=== PATIENT | male | born 1935 | race Caucasian/White ===

== ENCOUNTER 2017-12-18 14:57 | Inpatient (IN) | payer MEDICARE, OTHER ==
[~2017-12-18] VITALS: Ht 182.9 cm; Wt 121.2 kg
--- NOTE | ~2017-12-18 | EC ---
PATIENT:RAYMOND ANGUIANO DATE OF SERVICE: 12/18/17 SEX: M MEDICAL RECORD: [id number] DATE OF : 37 LOCATION:D.M2 D.210 AGE OF PATIENT: 82 ADMISSION DATE: 12/18/17 REFERRING PHYSICIAN: INTERPRETING PHYSICIAN: MARIANNE RENE MD ECHOCARDIOGRAM REPORT ECHO CHARGES 5 ECHO LIMITED Date: 12/20 CLINICAL DIAGNOSIS: CHF ECHOCARDIOGRAPHIC MEASUREMENTS (adult normal given) AC root (d.<3.7cm) 3.9 cm LV Septum d (<1.2 cm> 1.7 cm Valve Excursion 1.6 cm LV Septum (systole) 1.8 cm Left Atria (s.<4.0cm> 3.7 cm LVPW d(<1.2cm) 2.0 cm RV (d.<2.3cm) 5.2 cm LVPW (sytole) 1.8 cm LV diastole(<5.6CM) 4.9 cm MV E-F(>70mm/sec) cm LV systole 3.6 cm LVOT Diameter 1.9 cm MV exc.(>10mm) 1.8 cm Est.ejection fraction (50-75%) % DOPPLER: LVIT cm/sec A cm/sec E cm/sec LA cm/sec RVSP 46 mmHg LVOT cm/sec AOP1/2T m/s Asc. Ao cm/sec RVOT 84 cm/sec RA cm/sec PA 125 cm/sec AV Gradient Peak mmHg AV Mean mmHg AV Area cm MV Gradient Peak mmHg MV Mean mmHg MV Area cm COMMENTS: Leasing Machine Tender: Delmar HERNANDEZ Wax Pumper: 1 Dr. Rene TAPE# PACS Pericardial Effusion Y DATE OF SERVICE: 12/20/2017 FINDINGS: 1. Left ventricular chamber size is within normal limits. Left ventricular systolic function is normal. Overall ejection fraction estimated at 55%. 2. Left atrium is within normal limits at 3.7 cm. Right atrium and right ventricular chamber sizes are moderate to severely dilated. 3. Valvular structures have normal structure and motion. 4. Doppler interrogation reveals mild mitral regurgitation and aikazurp-co-sasqjl tricuspid regurgitation. Pulmonary systolic pressure is ECHOCARDIOGRAM REPORT [id number] RAYMOND ANGUIANO elevated estimated at 46 mmHg. 5. No evidence of pericardial effusion or left ventricular thrombus. TRANSINT:[id number] Voice Confirmation ID: [id number] DOCUMENT ID: [id number] MARIANNE RENE MD at 1006 CC: [id number] DICTATION DATE: 12/21/17 1002 HEALTH THERAPIST: 12/21/17 1247 DIS IN 12/21/17 [place] [id number] [place] [id number]
--- NOTE | ~2017-12-18 | CN ---
PATIENT NAME:RAYMOND ANGUIANO MEDICAL RECORD: [id number] : 37 LOCATION:D. D.2103 ADMIT DATE: 12/18/17 ACCOUNT: [id number] CONSULTING PHYSICIAN: JV GARIBAY MD REFERRING PHYSICIAN: CINDY MCNEILL MD DATE OF CONSULTATION: 12/19/2017 CONSULT REQUESTING PHYSICIAN: Harvey Deng MD REASON FOR CONSULTATION: Acute exacerbation of chronic obstructive pulmonary disease and shortness of breath. HISTORY OF PRESENT ILLNESS: Mr. Anguiano is an 82-year-old gentleman who has for the last one week worsening shortness of breath, he is wheezing. His cough is productive with white color sputum production. Also, he has swelling of the lower extremities. Denies any fever and chills. No night sweats. REVIEW OF SYSTEMS: As in history of present illness. PAST MEDICAL HISTORY: 1. COPD. 2. Restless leg syndrome. 3. Hypertension. 4. Atrial fibrillation. 5. History of basal cell carcinoma of the skin. PAST SURGICAL HISTORY: 1. Cholecystectomy. 2. T&A as a child. 3. Right knee scope surgery. ALLERGIES: ALLERGIC TO INDOMETHACIN, NIACIN, AND ULORIC. PRESENT MEDICATIONS: On [place] is reviewed. PERSONAL AND SOCIAL HISTORY: The patient is an ex-smoker. He is a nondrinker. FAMILY HISTORY: Significant for lung disease and cancer. PHYSICAL EXAMINATION: GENERAL: Now, the patient is lying comfortably in bed. He is not in acute distress. VITAL SIGNS: The blood pressure is 103/64, pulse is 68, respiration is 20, temperature 97.7, SpO2 is 96% on 2 liters nasal cannula. HEENT: Conjunctivae is pink. Sclerae are not icteric. NECK: Supple, no JVD. CHEST: There are bibasilar crackles. Wheeze on forceful expiration. HEART: Rhythm regular, normal sound, no murmur. ABDOMEN: Soft, bowel sounds present. No hepatosplenomegaly. RECTAL: Deferred. EXTREMITIES: No cyanosis, no clubbing. There are 2+ pedal edema. CENTRAL NERVOUS SYSTEM: The patient awake and alert. There are no obvious cranial nerve abnormality. The gait was not tested. CHEST RADIOGRAPH: There is no acute infiltrate. There is cardiomegaly. CONSULT REPORT [id number] RAYMOND ANGUIANO OTHER LABORATORY DATA: CBC: The WBC is 8.3, hemoglobin 12.9, hematocrit 39, the platelet count is 177. Chemistry: Sodium 136, potassium is 4, BUN is 36, creatinine 1.8. IMPRESSION: 1. Acute exacerbation of chronic obstructive pulmonary disease. 2. Acute hypoxic respiratory failure. 3. Tracheobronchitis. 4. Congestive heart failure, possible diastolic dysfunction. 5. Hypertension. 6. Atrial fibrillation. RECOMMENDATION: 1. Methylprednisolone IV. Start on doxycycline. 2. Albuterol and ipratropium nebulizer, Brovana and budesonide nebulizer. 3. Bumex IV. 4. Supplemental oxygen. 5. Check the cardiac echo. Follow labs and chest radiograph. Dr. Deng, thank you for involving me in the care of Mr. Anguiano. TRANSINT:[id number] Voice Confirmation ID: [id number] DOCUMENT ID: [id number] VJ GARIBAY MD at 1208 CC: HARVEY DENG MD [id number] DICTATION DATE: 12/19/17 1514 ALMOND BLANCHER HAND: 12/19/17 1539 DIS IN 12/21/17 [place] [id number] [place] [address]
[~2017-12-18 14:57] MED LIST: ALLEGRA180 MG PO; ASPIRIN EC81 MG PO; AVAPRO150 MG PO; CARDIZEM CD180 MG PO; COLCRYS0.6 MG PO; CRESTOR5 MG PO; K-TAB10 MEQ PO; LANTUS SOL100 UNIT/1; LASIX20 MG PO; NORCO 5/325 TAB1 TA1 PO; PRADAXA150 MG PO; REQUIP1 MG PO; VITAMIN B-121000 MCG PO; ZANTAC150 MG PO
[2017-12-18 15:52] LABS: BASOPHILS 0.2 % (0-2); EOSINOPHILS 0.2 % (0-7); HEMATOCRIT 41.2 % (42.0-54.0); HEMOGLOBIN 13.6 g/dL (13.5-17.5); IMMATURE GRANULOCYTES 0.5 % (0-5); LYMPHOCYTES 11.3 % (15-50); MCH 31.5 pg (26.0-34.0); MCV 95.4 fL (80.0-100.0); MONOCYTES 13.4 % (2-11); NEUTROPHILS 74.4 % (40-80); PLATELET COUNT 164 10x3/uL (130-400); RBC 4.32 10x6/uL (4.20-6.10); RDW 13.8 % (11.5-14.5); WBC 10.3 10x3/uL (4.8-10.8)
[2017-12-18 16:05] LABS: ALBUMIN 3.1 g/dL (3.4-5.0); ALKALINE PHOSPHATASE 65 U/L (46-116); ALT (SGPT) 27 U/L (10-68); BILIRUBIN - TOTAL 0.63 mg/dL (0.2-1.3); CALC OSMOLALITY 282 mosm/kg (275-300); CALCIUM 9.2 mg/dL (8.5-10.1); CARBON DIOXIDE 25.1 mmol/L (21.0-32.0); CHLORIDE - SERUM 100 mmol/L (98-107); CREATININE - SERUM 1.8 mg/dL (0.6-1.3); POTASSIUM - SERUM 4.2 mmol/L (3.5-5.1); PROTEIN - SERUM 6.8 g/dL (6.4-8.2); SODIUM 135 mmol/L (136-145); UREA NITROGEN 36 mg/dL (7-18); eGFR NON AFRICAN AMERICAN 39 mL/min (90-120)
[2017-12-18 16:12] LABS: GLUCOSE 197 mg/dL (74-106)
[2017-12-18 16:13] LABS: CREATINE KINASE 73 UL (21-232); LDH 196 U/L (85-227); PRO BNP 3630 pg/mL (0-450)
[2017-12-18 16:14] LABS: TROPONIN-I < 0.017 ng/mL (0.000-0.060)
[2017-12-18] MEDS ORDERED: TRADJENTA5 MG PO (19:51)
[2017-12-18] MEDS ORDERED: VITAMIN D250000 UNIT PO (19:53)
[2017-12-18] MEDS ORDERED: COREG25 MG PO (19:53)
[2017-12-18 20:00] VITALS: BP 172/60
[2017-12-18] MEDS ORDERED: PROAIR HFA8.5 GM INH (20:01)
[2017-12-19 01:00] VITALS: BP 156/60
[2017-12-19 04:00] VITALS: BP 154/68
[2017-12-19 05:18] LABS: BASOPHILS 0.1 % (0-2); EOSINOPHILS 0 % (0-7); HEMOGLOBIN 12.9 g/dL (13.5-17.5); IMMATURE GRANULOCYTES 0.4 % (0-5); LYMPHOCYTES 8.7 % (15-50); MCH 30.9 pg (26.0-34.0); MCHC 33.1 g/dL (31.0-37.0); MCV 93.5 fL (80.0-100.0); MEAN PLATELET VOLUME 9.9 fL (7.4-10.4); MONOCYTES 2.2 % (2-11); NEUTROPHILS 88.6 % (40-80); PLATELET COUNT 177 10x3/uL (130-400); RBC 4.17 10x6/uL (4.20-6.10); RDW 13.7 % (11.5-14.5); WBC 8.3 10x3/uL (4.8-10.8)
[2017-12-19 05:37] LABS: CALCIUM 8.9 mg/dL (8.5-10.1); CREATININE - SERUM 1.8 mg/dL (0.6-1.3)
[2017-12-19 08:52] VITALS: BP 142/67
[2017-12-19 11:29] VITALS: BP 103/64
[2017-12-19 12:22] VITALS: Ht 182.9 cm; Wt 121.2 kg
[2017-12-19 16:15] VITALS: BP 154/81
[2017-12-19 20:03] VITALS: BP 151/66
[2017-12-20 01:03] VITALS: BP 127/63
[2017-12-20 05:01] VITALS: BP 184/91
[2017-12-20 05:46] LABS: BASOPHILS 0 % (0-2); EOSINOPHILS 0 % (0-7); HEMATOCRIT 39.9 % (42.0-54.0); HEMOGLOBIN 13.1 g/dL (13.5-17.5); IMMATURE GRANULOCYTES 0.4 % (0-5); LYMPHOCYTES 5.9 % (15-50); MCH 30.8 pg (26.0-34.0); MCHC 32.8 g/dL (31.0-37.0); MCV 93.9 fL (80.0-100.0); MEAN PLATELET VOLUME 10.1 fL (7.4-10.4); MONOCYTES 5.3 % (2-11); NEUTROPHILS 88.4 % (40-80); PLATELET COUNT 199 10x3/uL (130-400); RBC 4.25 10x6/uL (4.20-6.10); RDW 13.7 % (11.5-14.5)
[2017-12-20 06:16] LABS: ALBUMIN 2.9 g/dL (3.4-5.0); BILIRUBIN - TOTAL 0.5 mg/dL (0.2-1.3); CARBON DIOXIDE 28.6 mmol/L (21.0-32.0); CREATININE - SERUM 1.9 mg/dL (0.6-1.3); POTASSIUM - SERUM 3.6 mmol/L (3.5-5.1); PROTEIN - SERUM 6.5 g/dL (6.4-8.2)
[2017-12-20 07:43] VITALS: BP 148/61
[2017-12-20 11:21] VITALS: BP 176/75
[2017-12-20 15:19] VITALS: BP 177/71
[2017-12-20 20:00] VITALS: BP 138/74
[2017-12-21] VITALS: BP 141/51
[2017-12-21 05:12] LABS: BASOPHILS 0 % (0-2); EOSINOPHILS 0 % (0-7); HEMATOCRIT 39.7 % (42.0-54.0); IMMATURE GRANULOCYTES 0.6 % (0-5); LYMPHOCYTES 7.6 % (15-50); MCH 30.8 pg (26.0-34.0); MCHC 32.7 g/dL (31.0-37.0); MCV 94.1 fL (80.0-100.0); MEAN PLATELET VOLUME 9.9 fL (7.4-10.4); MONOCYTES 5.2 % (2-11); NEUTROPHILS 86.6 % (40-80); PLATELET COUNT 207 10x3/uL (130-400); RBC 4.22 10x6/uL (4.20-6.10); RDW 13.7 % (11.5-14.5); WBC 14.1 10x3/uL (4.8-10.8)
[2017-12-21 05:27] LABS: ALBUMIN 2.7 g/dL (3.4-5.0); BILIRUBIN - TOTAL 0.39 mg/dL (0.2-1.3); CALCIUM 8.8 mg/dL (8.5-10.1); CARBON DIOXIDE 30.6 mmol/L (21.0-32.0); CREATININE - SERUM 1.6 mg/dL (0.6-1.3); POTASSIUM - SERUM 3.6 mmol/L (3.5-5.1)
[2017-12-21 09:10] VITALS: BP 142/52
[2017-12-21] MEDS ORDERED: LISINOPRIL5 MG PO (14:58)
[2017-12-21] MEDS ORDERED: PREDNISONE10 MG PO (15:01)
== END 2017-12-21 18:34 | disposition home or self-care (01) | DRG 291 ==
LOC: D.ER 14:57 → D.M2 18:20 → D.EDHOLD 18:20 → D.M2 19:03
PROVIDERS: Emergency Medicine; Family Medicine
DX: I13.0 Hypertensive heart and chronic kidney disease with heart failure and stage 1 through stage 4 chronic kidney disease, or unspecified chronic kidney disease (principal); J96.01 Acute respiratory failure with hypoxia; I50.21 Acute systolic (congestive) heart failure; J44.1 Chronic obstructive pulmonary disease with (acute) exacerbation; N18.9 Chronic kidney disease, unspecified; E11.22 Type 2 diabetes mellitus with diabetic chronic kidney disease; E11.65 Type 2 diabetes mellitus with hyperglycemia; G25.81 Restless legs syndrome; I48.2 Chronic atrial fibrillation; Z87.891 Personal history of nicotine dependence

== ENCOUNTER → 2018-06-08 12:55 | Outpatient (CLI) | payer MEDICARE, OTHER ==
[2017-12-19 12:22] VITALS: BMI 35.9
[~2018-06-08 12:55] MED LIST changes: +COREG25 MG PO; +LISINOPRIL5 MG PO; +PREDNISONE10 MG PO; +PROAIR HFA8.5 GM INH; +TRADJENTA5 MG PO; +VITAMIN D250000 UNIT PO
== END | disposition home or self-care (01) ==
LOC: D.RT 12:55
DX: J90 Pleural effusion, not elsewhere classified (principal); J44.9 Chronic obstructive pulmonary disease, unspecified

== ENCOUNTER → 2018-12-18 14:02 | Outpatient (CLI) | payer MEDICARE, OTHER ==
[2017-12-19 12:22] VITALS: BMI 35.9
== END | disposition home or self-care (01) ==
LOC: D.HCCARDIO 12-12 11:00
PROVIDERS: ATTEND Internal Medicine Cardiovascular Disease
DX: I48.91 Unspecified atrial fibrillation (principal)

== ENCOUNTER 2019-03-09 08:10 | Day surgery (SDC) | payer MEDICARE, OTHER ==
[2019-03-08 14:36] LABS: BASOPHILS 0.3 % (0-2); EOSINOPHILS 2.9 % (0-7); HEMATOCRIT 41.2 % (42.0-54.0); HEMOGLOBIN 13.7 g/dL (13.5-17.5); IMMATURE GRANULOCYTES 0.6 % (0-5); MCHC 33.3 g/dL (31.0-37.0); MCV 93.2 fL (80.0-100.0); MEAN PLATELET VOLUME 9.1 fL (7.4-10.4); MONOCYTES 11.3 % (2-11); NEUTROPHILS 71.9 % (40-80); RBC 4.42 10x6/uL (4.20-6.10); RDW 14.2 % (11.5-14.5); WBC 11.7 10x3/uL (4.8-10.8)
[2019-03-08 14:37] LABS: PLATELET COUNT 255 10x3/uL (130-400)
[2019-03-08 14:49] LABS: ANION GAP 13.8 mmol/L (8-16); CARBON DIOXIDE 26.7 mmol/L (21.0-32.0); CREATININE - SERUM 1.9 mg/dL (0.6-1.3); POTASSIUM - SERUM 4.5 mmol/L (3.5-5.1)
[2019-03-08 14:53] LABS: INR 1.13 (0.85-1.17)
[2019-03-08 14:54] LABS: APTT 38.2 SECONDS (22.8-39.4)
[~2019-03-09] VITALS: Ht 182.9 cm; Wt 113.4 kg
[~2019-03-09 08:10] MED LIST changes: +ADVAIR HFA [SP]12 GM; +ALBUTEROL SULF8.5 GM; +FLUTICASONE PRO16 GM; +HYDRALAZINE HCL25 MG; +SPIRIVA18 MCG INH; +TIAZAC/CARDIZE180 MG; +ZANTAC300 MG
[2019-03-09 08:25] VITALS: BP 125/54; Ht 182.9 cm; Wt 113.4 kg
[2019-03-09] MEDS ORDERED: HYDROCODON-ACE1 EAC7 PO (11:49)
[2019-03-09] MEDS ORDERED: DURICEF500 MG PO (11:49)
--- NOTE | 2019-03-09 13:19 | OP ---
PATIENT NAME: RAYMOND ANGUIANO MEDICAL RECORD: [id number] :37 LOCATION:[facility] ADMISSION DATE: SURGEON: LUCIAN KONG DO DATE OF OPERATION: 03/09/2019 PROCEDURE PERFORMED: Left olecranon bursectomy. PREOPERATIVE DIAGNOSIS: Left olecranon bursitis. POSTOPERATIVE DIAGNOSIS: Left olecranon bursitis. INDICATIONS: Mr. Anguiano is an 83-year-old male, who presented to my office, seen by the nurse practitioner with left olecranon bursitis that had been aspirated previously and came right back. It is possible tophaceous in nature. He was tired of dealing with it. It was affecting his activities of daily living and given the pain, he could not rest his elbow on anything and wanted that removed. I informed him we could do that, but there is a high likelihood of it returning, but he was okay with that risk as well as the risks of damage to nerves and vessels, need for further surgery, bleeding and he signed the consent. SURGEON: Lucian Kong DO DESCRIPTION OF PROCEDURE: The patient was taken to the operative suite, laid in supine position, given general anesthetic. An LMA was placed. Given 2 grams of Ancef preoperatively. The left upper extremity was prepped and draped in sterile fashion. Incision was marked out over the elbow, the bursa, a slight radial curvature. The left upper extremity was then exsanguinated with an Esmarch and tourniquet was inflated to 250 mmHg, it was up for 19 minutes. Incision was then made. Careful dissection was made around the bursa and dissecting it out. In the more inferior portion of it, a small rent was made and drained tophaceous looking fluid. The rest of the sac was then removed, and the olecranon was debrided, it seemed to have some tophaceous material in it. The tourniquet was then let down. Any bleeding was coagulated at that time and then the incision was closed with 2-0 Vicryl in inverted interrupted fashion, 4-0 Monocryl on one other spot in inverted interrupted fashion and then injected with 17 mL of 0.25% Marcaine with epinephrine around the site. Then, a ZipLine was placed over that incision. Then Adaptic, 4 x 4, Webril, and Dave wrap was wrapped from the hand up to above the elbow. He was awakened and taken to recovery in stable condition. BLOOD LOSS: Minimal. COMPLICATIONS: None. TRANSINT:[id number] Voice Confirmation ID: [id number] DOCUMENT ID: [id number] OPERATIVE REPORT [id number] RAYMOND ANGUIANO,LUCIAN Garcia DO at 1319 CC: [id number] DICTATION DATE: 03/09/19 1147 BUSINESS CONSULT: 03/09/19 1[address] [place] [address] [place] [address]
--- NOTE | 2019-03-09 13:30 | NUR ---
PIV DC'D WITH TIP INTACT. PATIENT WALKING AROUND ROOM WITHOUT DIZZINESS OR UNSTEADINESS. PATIENT DRESSING IN PERSONAL CLOTHING. DISCHARGE INSTRUCTIONS REVIEWED WITH PATIENT AND SPOUSE
== END 2019-03-09 13:45 | disposition home or self-care (01) ==
LOC: D.OPS 08:10 → D.PAN 09:15 → D.OPS 09:15
PROVIDERS: Anesthesiology; ATTEND Orthopaedic Surgery
DX: M70.22 Olecranon bursitis, left elbow (principal); Z01.812 Encounter for preprocedural laboratory examination

== ENCOUNTER → 2019-03-19 12:20 | Outpatient (CLI) | payer MEDICARE, OTHER ==
[2019-03-09 08:25] VITALS: BMI 34.0
[~2019-03-19 12:20] MED LIST changes: +DURICEF500 MG PO; +HYDROCODON-ACE1 EAC7 PO
== END | disposition home or self-care (01) ==
LOC: D.MRI 11:00
PROVIDERS: ATTEND Internal Medicine Cardiovascular Disease
DX: I70.203 Unspecified atherosclerosis of native arteries of extremities, bilateral legs (principal)

== ENCOUNTER 2019-07-18 11:51 | Inpatient (IN) | payer MEDICARE, OTHER ==
[~2019-07-18] VITALS: Ht 182.9 cm; Wt 44.1 kg
[~2019-07-18 11:51] MED LIST changes: -ADVAIR HFA [SP]12 GM; +ADVAIR HFA [SP]12 GM INH; -ALBUTEROL SULF8.5 GM; +ALBUTEROL SULF8.5 GM INH; -FLUTICASONE PRO16 GM; +FLUTICASONE PRO16 GM NASAL; -TIAZAC/CARDIZE180 MG; +TIAZAC/CARDIZE180 MG PO
--- NOTE | 2019-07-18 12:57 | NUR ---
RECEIVED PT TO ROOM 2120 VIA STRETCHER, PT TRANSFERED FROM STRETCHER TO BED X2 ASSIST. PT A/O X4, A LITTLE SOB, PLACED ON 4L NC. ORIENTED PT TO ROOM AND CALL LIGHT, WILL ASSESS PT AND START PLAN OF CARE.
[2019-07-18] MEDS ORDERED: LASIX20 MG PO (13:16)
[2019-07-18] MEDS ORDERED: VOLTAREN100 GM TOPICAL (13:18)
[2019-07-18 13:55] LABS: BASOPHILS 0.6 % (0-2); HEMATOCRIT 41.9 % (42.0-54.0); HEMOGLOBIN 13.4 g/dL (13.5-17.5); IMMATURE GRANULOCYTES 0.6 % (0-5); LYMPHOCYTES 22.1 % (15-50); MCH 30.4 pg (26.0-34.0); MEAN PLATELET VOLUME 9.4 fL (7.4-10.4); NEUTROPHILS 61.7 % (40-80); PLATELET COUNT 213 10x3/uL (130-400); RBC 4.41 10x6/uL (4.20-6.10); RDW 14.9 % (11.5-14.5)
[2019-07-18 14:03] LABS: APTT 44.2 SECONDS (22.8-39.4); INR 1.41 (0.85-1.17); PROTIME 16.7 SECONDS (11.6-15.0)
[2019-07-18 14:18] LABS: ALBUMIN 2.9 g/dL (3.4-5.0); ANION GAP 11.1 mmol/L (8-16); BILIRUBIN - TOTAL 0.44 mg/dL (0.2-1.3); CALCIUM 9.1 mg/dL (8.5-10.1); CARBON DIOXIDE 31.4 mmol/L (21.0-32.0); CREATININE - SERUM 2.5 mg/dL (0.6-1.3); POTASSIUM - SERUM 3.5 mmol/L (3.5-5.1); PROTEIN - SERUM 6.4 g/dL (6.4-8.2)
[2019-07-18 14:19] VITALS: BP 158/65; BMI 33.3
[2019-07-18 14:50] VITALS: Ht 182.9 cm; Wt 44.1 kg
[2019-07-18 18:13] LABS: CHOL - HDL RATIO 4.8 ratio (2.3-4.9); LDL-HDL RATIO 2.6 ratio (1.5-3.5)
--- NOTE | 2019-07-18 19:22 | NUR ---
RECEIVED BEDSIDE REPORT. PATIENT RESTING COMFORTABLY IN BED. RESPIRATIONS ARE EVEN AND UNLABORED. NO S/S OF DISTRESS. NO C/O PAIN. CALL LIGHT WITHIN REACH.
[2019-07-18 20:00] VITALS: BP 158/59
[2019-07-18 20:50] LABS: APPEARANCE CLEAR (CLEAR); BILIRUBIN NEGATIVE (NEGATIVE); COLOR YELLOW (YELLOW); EPITHELIAL CELLS 0-5 /hpf (0-5); GLUCOSE NEGATIVE (NEGATIVE); KETONE NEGATIVE (NEGATIVE); NITRITE NEGATIVE (NEGATIVE); PROTEIN 2+ mg/dL (NEGATIVE); RED CELLS - URINE 0-5 /hpf (0-5); UROBILINOGEN NORMAL (NORMAL); WHITE CELLS - URINE 0-5 /hpf (NEGATIVE)
--- NOTE | 2019-07-18 20:57 | NUR ---
UA OBTAINED AND SENT TO LAB.
[2019-07-19] VITALS: BP 148/50
[2019-07-19 04:00] VITALS: BP 173/65
[2019-07-19 05:17] LABS: BASOPHILS 0.3 % (0-2); EOSINOPHILS 4.6 % (0-7); HEMATOCRIT 40.9 % (42.0-54.0); IMMATURE GRANULOCYTES 0.7 % (0-5); LYMPHOCYTES 19.4 % (15-50); MCH 30.4 pg (26.0-34.0); MCHC 31.8 g/dL (31.0-37.0); MCV 95.6 fL (80.0-100.0); MEAN PLATELET VOLUME 9.7 fL (7.4-10.4); MONOCYTES 14.2 % (2-11); NEUTROPHILS 60.8 % (40-80); PLATELET COUNT 212 10x3/uL (130-400); RBC 4.28 10x6/uL (4.20-6.10); RDW 14.9 % (11.5-14.5); WBC 7.4 10x3/uL (4.8-10.8)
[2019-07-19 05:44] LABS: ANION GAP 12.6 mmol/L (8-16); CALCIUM 8.9 mg/dL (8.5-10.1); CARBON DIOXIDE 30.7 mmol/L (21.0-32.0); CREATININE - SERUM 2.4 mg/dL (0.6-1.3); PHOSPHOROUS 4.3 mg/dL (2.5-4.9); POTASSIUM - SERUM 3.3 mmol/L (3.5-5.1)
--- NOTE | 2019-07-19 07:30 | NUR ---
REPORT RECEIVED FROM ASSOCIATE TRAINER AND PATIENT CARE ASSUMED. PATINT OAYING IN BED WITH EYES CLOSED AND BREATHING EVENLY. WILL CONTINUE WITH PLAN OF CARE. SR UP X 2 BED IN LOW POSITION AND CALL LIGHT IN REACH.
[2019-07-19 08:00] VITALS: BP 165/64
[2019-07-19 09:25] VITALS: BP 165/64
[2019-07-19 13:08] VITALS: BP 184/87
--- NOTE | 2019-07-19 13:15 | NUR ---
PATIENT SITTING UP IN BED VISITING WITH . PATIENT IS STABLE AND VSS. PATIENT DENIES ANY NEEDS OR PAIN. [facility]. SR UP X 2 BED IN LOW POSITION AND CALL LIGHT IN REACH.
--- NOTE | 2019-07-19 15:00 | NUR ---
CALLED TO PATIENTS ROOM. PATIENT QUESTIONED IF DR WAS COMING TO SEE HIM. CHECKED CHART AND NOTE FROM 1128 BUT PATIENT AND DENIE THAT PATIENT SAW PHYSICIAN.
[2019-07-19 16:00] VITALS: BP 180/82
--- NOTE | 2019-07-19 19:31 | NUR ---
RECIEVED LAYING IN BED WITH EYES CLOSED. EASILY AROUSED WITH VERBAL STIMULI. ORIENTED X4. O2@ 2 LITERS PER N/C. IV TO RIGHT WRIST SL. TELEMETRY IN [PLACE. USES URINAL IN BED. DENIES ANY NEEDS AT THIS TIME.
[2019-07-20] VITALS: BP 194/89
[2019-07-20 04:00] VITALS: BP 169/98
--- NOTE | 2019-07-20 07:10 | NUR ---
REPORT RECEVIED FROM VALVE MACHINE OPERATOR AND PATIENT CARE ASSUMED. PATIENT LAYING IN BED ON BACK AWAKE, ALERT AND ORIENTED X 4. PATIENT IS STABLE AND VSS. PATIENT DENIES ANY NEEDS OR PAIN. WILL CONTINUE WITH PLAN OF CARE. SR UP X 2 BED IN LOW POSITION AND CALL LIGHT IN REACH.
[2019-07-20 08:50] VITALS: BP 177/104
[2019-07-20 11:51] LABS: BASOPHILS 0.2 % (0-2); EOSINOPHILS 0.7 % (0-7); HEMATOCRIT 44.7 % (42.0-54.0); HEMOGLOBIN 14.3 g/dL (13.5-17.5); LYMPHOCYTES 11.4 % (15-50); MCH 30.8 pg (26.0-34.0); MCV 96.1 fL (80.0-100.0); MEAN PLATELET VOLUME 9.8 fL (7.4-10.4); MONOCYTES 14.6 % (2-11); NEUTROPHILS 72.1 % (40-80); PLATELET COUNT 220 10x3/uL (130-400); RBC 4.65 10x6/uL (4.20-6.10)
[2019-07-20 11:56] LABS: WBC 10.2 10x3/uL (4.8-10.8)
[2019-07-20 12:03] LABS: ANION GAP 11.5 mmol/L (8-16); CALCIUM 9.8 mg/dL (8.5-10.1); CARBON DIOXIDE 32.5 mmol/L (21.0-32.0); CREATININE - SERUM 2.3 mg/dL (0.6-1.3)
--- NOTE | 2019-07-20 12:14 | NUR ---
PATIENT IS STABLE AND UNCHANGED. STILL WITH DYSPNEA WITH EXERTION. PATIENT SITTING UP EATING LUNCH. AT BS. WILL CONTINUE TO MONITOR. SR UP X 2 BED IN LOW POSITION AND CALL LIGHT IN REACH.
[2019-07-20 13:42] VITALS: BP 168/73
--- NOTE | 2019-07-20 15:25 | NUR ---
PATIENT LAYING IN BED ON BACK WITH HOB ELEVATED [address] JAMES AND CHASTITY ELDER IN ROOM. WILL CONTINUE TO MONITOR. SR UP X 2 BED IN LOW POSITION AND CALL LIGHT IN REACH.
--- NOTE | 2019-07-20 15:28 | EC ---
PATIENT:RAYMOND ANGUIANO DATE OF SERVICE: 07/18/19 SEX: M MEDICAL RECORD: [id number] DATE OF : 36 LOCATION:D.M2 D.212 AGE OF PATIENT: 84 ADMISSION DATE: 07/18/19 REFERRING PHYSICIAN: INTERPRETING PHYSICIAN: MARIANNE RENE MD ECHOCARDIOGRAM REPORT ECHO CHARGES 4 ECHO COMPLETE Date: 07/20/19 CLINICAL DIAGNOSIS: A-FIB/CHF ECHOCARDIOGRAPHIC MEASUREMENTS (adult normal given) AC root (d.<3.7cm) 3.7 cm LV Septum d (<1.2 cm> 1.4 cm Valve Excursion 1.7 cm LV Septum (systole) 2.0 cm Left Atria (s.<4.0cm> 4.0 cm LVPW d(<1.2cm) 1.6 cm RV (d.<2.3cm) 2.8 cm LVPW (sytole) 2.0 cm LV diastole(<5.6CM) 4.9 cm MV E-F(>70mm/sec) cm LV systole 3.2 cm LVOT Diameter 2.1 cm MV exc.(>10mm) cm Est.ejection fraction (50-75%) % DOPPLER: LVIT cm/sec A 74.0 cm/sec E 121 cm/sec LA cm/sec RVSP 39.0 mmHg LVOT 76.0 cm/sec AOP1/2T m/s Asc. Ao 15 cm/sec RVOT 68.0 cm/sec RA cm/sec PA 81.0 cm/sec AV Gradient Peak 9.7 mmHg AV Mean 5.1 mmHg AV Area 1.7 cm MV Gradient Peak 8.0 mmHg MV Mean 1.9 mmHg MV Area cm COMMENTS: Center Customer Service Associate: Manuela KEITHOE Medical Assistant Supervisor: 1 Dr. Rene TAPE# PACS Pericardial Effusion Y DATE OF SERVICE: ECHOCARDIOGRAM FINDINGS: 1. Left ventricular chamber size is within normal limits. Left ventricular systolic function is mildly reduced at 40%. 2. Left atrium is upper limits of normal at 4.0 cm. Right atrium and right ventricular chamber sizes are mildly dilated. 3. Valvular structures have normal structure and motion. ECHOCARDIOGRAM REPORT [id number] RAYMOND ANGUIANO 4. Doppler interrogation reveals moderate mitral regurgitation, moderate tricuspid regurgitation, no other valvular insufficiency or stenosis. Pulmonary systolic pressure is estimated at 39 mmHg. 5. Trace pericardial effusion is present. This is not hemodynamically significant. No evidence of left ventricular thrombus. TRANSINT:[id number] Voice Confirmation ID: [id number] DOCUMENT ID: [id number] MARIANNE RENE MD at 1528 CC: [id number] DICTATION DATE: 07/20/19 1237 TRANSFUSION NURSE: 07/20/19 1247 ADM IN [place] [address] [place] [address]
[2019-07-20 18:26] VITALS: BP 206/108
--- NOTE | 2019-07-20 19:31 | NUR ---
RECIEVED SITTING UP ON SIDE OF BED. ALERT AND ORIENTED X4. UP WITH ASSIST. O2@ 5 LITERS PER N/C IN PLACE. IV TO RIGHT WRIST SL.. TELEMETRY IN PLACE. DENIES ANY PAIN OR NEEDS AT THIS TIME.
[2019-07-20 20:00] VITALS: BP 186/92
--- NOTE | 2019-07-20 21:41 | NUR ---
HAS HAD HIGH B/P READINGS. 186/92 ON RIGHT ARM AND 219/96 ON LEFT. NOTIFIED CHASTITY PRINGLE WITH NEW ORDERS TO INCREASE COREG TO 12.5 MG BID AND TO GIVE FIRST DOSE NOW. PT AWARE OF NEW ORDER.
[2019-07-21] VITALS: BP 177/92
[2019-07-21 04:30] VITALS: BP 181/94
[2019-07-21 05:12] LABS: BASOPHILS 0.3 % (0-2); EOSINOPHILS 2.7 % (0-7); HEMATOCRIT 41.7 % (42.0-54.0); HEMOGLOBIN 13.5 g/dL (13.5-17.5); IMMATURE GRANULOCYTES 0.6 % (0-5); LYMPHOCYTES 12.7 % (15-50); MCH 30.6 pg (26.0-34.0); MCHC 32.4 g/dL (31.0-37.0); MCV 94.6 fL (80.0-100.0); MEAN PLATELET VOLUME 10.1 fL (7.4-10.4); MONOCYTES 17.5 % (2-11); NEUTROPHILS 66.2 % (40-80); PLATELET COUNT 213 10x3/uL (130-400); RBC 4.41 10x6/uL (4.20-6.10); RDW 14.8 % (11.5-14.5); WBC 7.9 10x3/uL (4.8-10.8)
[2019-07-21 05:18] LABS: ANION GAP 11.5 mmol/L (8-16); CALCIUM 9.1 mg/dL (8.5-10.1); CARBON DIOXIDE 29.6 mmol/L (21.0-32.0); MAGNESIUM - SERUM 1.9 mg/dL (1.8-2.4); POTASSIUM - SERUM 4.1 mmol/L (3.5-5.1)
--- NOTE | 2019-07-21 07:40 | NUR ---
alert and oriented.TELEMERTY SHOWS CAF 85. O2 AT 5 L/M PER NC. hOB UP. SL TO RIGHT WRIST. PT IS HARD OF HEARING. DENIES ANY NEEDS. SR UP WITH CALL LIGHT IN REACH.
[2019-07-21 08:36] VITALS: BP 208/108
--- NOTE | 2019-07-21 09:53 | NUR ---
I have reviewed this patient and I concur with the Shift Assessment completed by the Licensed Practical Nurse today this shift.
[2019-07-21 12:30] VITALS: BP 179/95
--- NOTE | 2019-07-21 14:20 | MORECARE ---
CASE MANAGEMENT DISCHARGE SUMMARY PATIENT: RAYMOND ANGUIANO UNIT: [id number] ADM DATE: 07/18/19 AGE: 84 : 36 SEX: M ROOM/BED: D.2121 AUTHOR: RICO,DOC PHYSICIAN: REFERRING PHYSICIAN: GEORGIA BANGURA MD DATE OF SERVICE: 07/21/19 Discharge Plan Patient Name: RAYMOND ANGUIANO Facility: [facility]:[place] : 1935 Planned Disposition: Home or Self Care Anticipated Discharge Date: 07/21/19 Discharge Date: Expected LOS: 3 Initial Reviewer: [email or web address] Initial Review Date: 07/21/2019 Generated: 07/21/19 3:20 pm Comments DCP- Discharge Planning Updated by [email or web address]: Chasity Rajan on 07/21/19 1:[address] Patient Name: RAYMOND ANGUIANO Admission Status: Urgent Accout number: [id number] Admission Date: 07-18-2019 : 1935 Admission Diagnosis: Attending: GEORGIA BANGURA Current LOS: 3 Anticipated DC Date: 07-21-2019 Planned Disposition: Home or Self Care Primary Insurance: MEDICARE A & B Discharge Planning Comments: CM met with patient at bedside after explaining CM role and obtaining verbal consent. PATIENT STATES HOPE TO DC TO HOME TODAY. MAY NEED PORTABLE O2. HAS HOME O2 WITH [facility]. CM discussed availability / needs of home health, REHAB and medical equipment. DENIES ANY NEEDS FOR HH OR REHAB. CM TO FOLLOW. Health Unit Coordinator: Chasity Rajan DCPIA - Discharge Planning Initial Assessment Updated by [email or web address]: Chasity Rajan on 07/21/19 2:18 pm * Is the patient Alert and Oriented? Yes * PCP [facility] * [facility] * Preadmission Environment Home with Family * ADLs Independent * Other Equipment 02 WALKER * List name and contact numbers for known caregivers / representatives who currently or will assist patient after discharge: RINA, * Community resources currently utilized None * Please name any agencies selected above. [facility] * Additional services required to return to the preadmission environment? No * Can the patient safely return to the preadmission environment? Yes * Has this patient been hospitalized within the prior 30 days at any hospital? No Patient Name: RAYMOND ANGUIANO Page [id number] at 1420 All edits/amendments must be made on the electronic document DICTATION DATE: 07/21/191419 MANAGER MATERIALS MANAGEMENT: GE 07/21/191419 RPT#: [id number] DC DATE: STATUS: ADM IN [facility] [address] [place] [address] END OF REPORT
[2019-07-21 16:07] VITALS: BP 162/92
[2019-07-21] MEDS ORDERED: HYDRALAZINE HCL25 MG PO (17:24)
--- NOTE | 2019-07-21 18:52 | NUR ---
PT DISCHARGED. IV DCD WITH TIP INTACT. TO PRIVATE CAR PER WHEEL CHAIR.
--- NOTE | 2019-07-22 10:06 | MORECARE ---
CASE MANAGEMENT DISCHARGE SUMMARY PATIENT: RAYMOND ANGUIANO UNIT: [id number] ADM DATE: 07/18/19 AGE: 84 : 36 SEX: M ROOM/BED: D.2121 AUTHOR: RICO,DOC PHYSICIAN: REFERRING PHYSICIAN: GEORGIA BANGURA MD DATE OF SERVICE: 07/22/19 Discharge Plan Patient Name: RAYMOND ANGUIANO Facility: [facility]:[place] : 1935 Planned Disposition: Home or Self Care Anticipated Discharge Date: 07/21/19 Discharge Date: 07/21/2019 Expected LOS: 3 Initial Reviewer: [email or web address] Initial Review Date: 07/21/2019 Generated: 07/22/19 11:05 am Comments DCP- Discharge Planning Updated by [email or web address]: Chasity Rajan on 07/21/19 1:[address] Patient Name: RAYMOND ANGUIANO Admission Status: Urgent Accout number: [id number] Admission Date: 07-18-2019 : 1935 Admission Diagnosis: Attending: GEORGIA BANGURA Current LOS: 3 Anticipated DC Date: 07-21-2019 Planned Disposition: Home or Self Care Primary Insurance: MEDICARE A & B Discharge Planning Comments: CM met with patient at bedside after explaining CM role and obtaining verbal consent. PATIENT STATES HOPE TO DC TO HOME TODAY. MAY NEED PORTABLE O2. HAS HOME O2 WITH [facility]. CM discussed availability / needs of home health, REHAB and medical equipment. DENIES ANY NEEDS FOR HH OR REHAB. CM TO FOLLOW. Spring Setter: Chasity Rajan DCPIA - Discharge Planning Initial Assessment Updated by [email or web address]: Chasity Rajan on 07/21/19 2:18 pm * Is the patient Alert and Oriented? Yes * PCP [facility] * [facility] * Preadmission Environment Home with Family * ADLs Independent * Other Equipment 02 WALKER * List name and contact numbers for known caregivers / representatives who currently or will assist patient after discharge: RINA, * Community resources currently utilized None * Please name any agencies selected above. [facility] * Additional services required to return to the preadmission environment? No * Can the patient safely return to the preadmission environment? Yes * Has this patient been hospitalized within the prior 30 days at any hospital? No Coverage Notice Reviewer: [id number] - Chasitypeng Rajan Notice Issued Date-Time: 07/21/2019 15:29 Notice Type: IM Discharge Notice Notice Delivered To: Patient Relationship to Patient: Children'S Tutor Name: Delivery Method: HAND - Hand Delivered Mily Days: Prior Verbal Notification: Recipient Understood Notice: Yes Recipient Signature: Yes Med Rec Note Co-signed by Attending: Coverage Notice Comment: Last DP export: 07/21/19 1:20 Patient Name: RAYMOND ANGUIANO Page [phone] at 1006 All edits/amendments must be made on the electronic document DICTATION DATE: 07/22/19 1005 OTR OWNER OPERATOR TRUCK DRIVER: GE 07/22/19 1005 RPT#: [id number] DC DATE:07/21/19 STATUS: DIS IN [facility] [address] [place] [address] END OF REPORT
== END 2019-07-21 18:54 | disposition home or self-care (01) | DRG 291 ==
LOC: D.M2 11:51
PROVIDERS: Family Medicine; Internal Medicine Interventional Cardiology; Internal Medicine Nephrology; ADMIT Family Medicine; ATTEND Family Medicine
DX: I13.0 Hypertensive heart and chronic kidney disease with heart failure and stage 1 through stage 4 chronic kidney disease, or unspecified chronic kidney disease (principal); I50.23 Acute on chronic systolic (congestive) heart failure; G45.9 Transient cerebral ischemic attack, unspecified; N39.0 Urinary tract infection, site not specified; I48.20 Chronic atrial fibrillation, unspecified; N17.9 Acute kidney failure, unspecified; N18.9 Chronic kidney disease, unspecified; I25.10 Atherosclerotic heart disease of native coronary artery without angina pectoris; I73.9 Peripheral vascular disease, unspecified; E11.65 Type 2 diabetes mellitus with hyperglycemia; E11.22 Type 2 diabetes mellitus with diabetic chronic kidney disease; E87.6 Hypokalemia

== ENCOUNTER 2019-09-04 08:00 | Outpatient (CLI) | payer MEDICARE, OTHER ==
[2019-07-18 14:50] VITALS: BMI 34.0
[~2019-09-04 08:00] MED LIST changes: +HYDRALAZINE HCL25 MG PO; +VOLTAREN100 GM TOPICAL
== END 2019-09-04 08:02 | disposition home or self-care (01) ==
LOC: D.RT 08:00
PROVIDERS: ATTEND Internal Medicine Pulmonary Disease
DX: J44.9 Chronic obstructive pulmonary disease, unspecified (principal)

== ENCOUNTER → 2019-11-06 14:14 | Outpatient (CLI) | payer MEDICARE, OTHER ==
[2019-07-18 14:50] VITALS: BMI 34.0
== END | disposition home or self-care (01) ==
LOC: D.HCCECHO 14:14
PROVIDERS: ATTEND Internal Medicine Cardiovascular Disease
DX: I10 Essential (primary) hypertension (principal)

== ENCOUNTER 2019-11-18 15:46 | Inpatient (IN) | payer MEDICARE, OTHER ==
[~2019-11-18] VITALS: Ht 182.9 cm; Wt 103.4 kg
--- NOTE | ~2019-11-18 | EEG ---
PATIENT:RAYMOND ANGUIANO MEDICAL RECORD: [id number] DATE OF : 37 LOCATION:D.230 D.ICU ADMISSION DATE: 11/20/19 REFERRING PHYSICIAN: INTERPRETING PHYSICIAN: CONCEPCION FINCH MD DATE OF SERVICE: 12/03/2019 ROOM: #308. ORDERED BY: Dr Finch. CASE HISTORY: An 84-year-old male status post respiratory failure, intubation, ARDS and acute kidney injury with metabolic changes and sepsis, now unresponsive 3 days post-discontinuation of sedation medication. No history of reported seizure. PROCEDURE: EEG done as a routine bedside portable recording using the standard 10-20 international electrode system, 16 channels used with 17th as EKG. Photic stimulation done as activation procedures. DESCRIPTION: EEG opens with the patient unresponsive on vent with the record displaying diffuse background theta and primarily delta slowing diffusely, there is no asymmetry in the background slowing nor observed rhythmicity. No epileptiform change such as spike, polyspike or spike and wave was seen. No responsive to stimulation up to noxious stimuli. IMPRESSION: Moderately abnormal EEG with diffuse background slowing consistent with encephalopathy. Etiologies that might include hypoxic insult, metabolic abnormalities, infection. No evidence of asymmetry that might suggest a structural abnormality such as stroke or evidence of seizure. TRANSINT:[id number] Voice Confirmation ID: [id number] DOCUMENT ID: [id number] CONCEPCION FINCH MD CC: [id number] DICTATION DATE: 12/03/191857 HOME SCHOOL LIAISON OFFICER: 12/03/19 215 ADM IN [facility] [address] [place] [address]
[2019-11-18 16:19] LABS: BASOPHILS 0.3 % (0-2); HEMATOCRIT 38.1 % (42.0-54.0); HEMOGLOBIN 11.9 g/dL (13.5-17.5); IMMATURE GRANULOCYTES 0.9 % (0-5); MCH 29.5 pg (26.0-34.0); MCHC 31.2 g/dL (31.0-37.0); MCV 94.5 fL (80.0-100.0); MEAN PLATELET VOLUME 8.9 fL (7.4-10.4); MONOCYTES 12.5 % (2-11); NEUTROPHILS 72.3 % (40-80); RBC 4.03 10x6/uL (4.20-6.10); RDW 15.8 % (11.5-14.5); WBC 7.6 10x3/uL (4.8-10.8)
[2019-11-18 16:21] LABS: PLATELET COUNT 277 10x3/uL (130-400)
[2019-11-18 16:28] LABS: APTT 48.3 SECONDS (22.8-39.4); INR 1.37 (0.85-1.17); PROTIME 16.8 SECONDS (11.6-15.0)
[2019-11-18 16:29] LABS: CALC OSMOLALITY 290 mosm/kg (275-300); CARBON DIOXIDE 28.9 mmol/L (21.0-32.0); CHLORIDE - SERUM 100 mmol/L (98-107); GLUCOSE 112 mg/dL (74-106); POTASSIUM - SERUM 3.3 mmol/L (3.5-5.1); SODIUM 139 mmol/L (136-145); UREA NITROGEN 47 mg/dL (7-18); eGFR NON AFRICAN AMERICAN 21 mL/min (90-120)
[2019-11-18 16:46] LABS: ALBUMIN 3.1 g/dL (3.4-5.0); ALKALINE PHOSPHATASE 120 U/L (30-120); ALT (SGPT) 97 U/L (10-68); BILIRUBIN - TOTAL 0.77 mg/dL (0.2-1.3); CKMB 2.1 U/L (0.0-3.6); CREATINE KINASE 50 UL (21-232); PRO BNP 4675 pg/mL (0-450); PROTEIN - SERUM 6.7 g/dL (6.4-8.2); TROPONIN-I 0.023 ng/mL (0.000-0.060)
[2019-11-18 17:08] VITALS: BP 179/76
--- NOTE | 2019-11-18 18:20 | NUR ---
PT ARRIVED VIA STRECHER AND AMBULATED TO OTHER BED WITH WALKER. URINAL RECIEVED PER REQUEST. DENIES FURTHER NEEDS OR PAIN AT THIS TIME. CALL LIGHT WITHIN REACH. BED IN LOWEST POSITION. WALKER AT BEDSIDE. ORIENTED TO ROOM. WILL CONTINUE TO MONITOR.
--- NOTE | 2019-11-18 19:10 | NUR ---
BEDSIDE REPORT RECEIVED, PT CARE ASSUMED. INTRODUCED SELF AND WROTE NAME ON BOARD. PT AMBULATING AROUND ROOM WITH WALKER, AAOX4. DENIES ANY NEEDS AT THIS TIME. BED IN LOWEST POSITION, SR X2, CALL LIGHT AND URINAL WITHIN REACH. WILL CONTINUE TO MONITOR.
[2019-11-18 20:00] VITALS: BP 159/72
[2019-11-18 23:19] VITALS: BP 159/72; BMI 27.8
[2019-11-19 06:25] LABS: BASOPHILS 0.1 % (0-2); EOSINOPHILS 1.8 % (0-7); HEMATOCRIT 34.4 % (42.0-54.0); HEMOGLOBIN 10.7 g/dL (13.5-17.5); IMMATURE GRANULOCYTES 0.8 % (0-5); LYMPHOCYTES 9.5 % (15-50); MCH 29.6 pg (26.0-34.0); MCHC 31.1 g/dL (31.0-37.0); NEUTROPHILS 74.8 % (40-80); PLATELET COUNT 254 10x3/uL (130-400); RBC 3.62 10x6/uL (4.20-6.10)
[2019-11-19 06:36] LABS: ANION GAP 15.1 mmol/L (8-16); CALCIUM 8.7 mg/dL (8.5-10.1); CARBON DIOXIDE 27.3 mmol/L (21.0-32.0); CREATININE - SERUM 2.9 mg/dL (0.6-1.3); MAGNESIUM - SERUM 2.3 mg/dL (1.8-2.4); POTASSIUM - SERUM 3.4 mmol/L (3.5-5.1)
[2019-11-19 07:48] VITALS: BP 189/90
[2019-11-19 09:15] VITALS: BMI 27.8
[2019-11-19 11:07] LABS: % SATURATION 18 % (15-55); IRON 45 ug/dl (35-150); TOTAL IRON BIND CAPACITY 239 ug/dl (260-445); UNSAT IRON BIND CAPACITY 194 ug/dl (150-375)
[2019-11-19 11:15] VITALS: BP 136/59
[2019-11-19 11:32] LABS: FERRITIN 265 ng/mL (3-244); MAGNESIUM - SERUM 2.2 mg/dL (1.8-2.4)
--- NOTE | 2019-11-19 13:37 | NUR ---
WAITING FOR PHARMACY TO BRING COLACE.
[2019-11-19 16:52] VITALS: BP 186/74
--- NOTE | 2019-11-19 17:33 | NUR ---
PT SITTING ON SIDE OF BED. EATING DINNER. PT STATES HE HAS NO FURTHER NEEDS AT THIS ITME. BED LOW. CL IN REACH.
[2019-11-19 19:39] VITALS: BP 180/78
--- NOTE | 2019-11-20 03:32 | NUR ---
I have reviewed this patient and I concur with the Shift Assessment completed by the Licensed Practical Nurse today this shift.
[2019-11-20 04:55] VITALS: BP 177/82
[2019-11-20 06:18] LABS: BASOPHILS 0.1 % (0-2); EOSINOPHILS 1.7 % (0-7); HEMATOCRIT 35.2 % (42.0-54.0); HEMOGLOBIN 10.9 g/dL (13.5-17.5); IMMATURE GRANULOCYTES 1.1 % (0-5); LYMPHOCYTES 11.4 % (15-50); MCH 29.6 pg (26.0-34.0); MCV 95.7 fL (80.0-100.0); MEAN PLATELET VOLUME 9.3 fL (7.4-10.4); MONOCYTES 13.7 % (2-11); PLATELET COUNT 292 10x3/uL (130-400); RBC 3.68 10x6/uL (4.20-6.10); RDW 16.2 % (11.5-14.5); WBC 8.2 10x3/uL (4.8-10.8)
[2019-11-20 06:41] LABS: ALBUMIN 3.2 g/dL (3.4-5.0); BILIRUBIN - TOTAL 1.24 mg/dL (0.2-1.3); CALCIUM 9.1 mg/dL (8.5-10.1); CREATININE - SERUM 2.8 mg/dL (0.6-1.3); MAGNESIUM - SERUM 2.3 mg/dL (1.8-2.4)
--- NOTE | 2019-11-20 07:28 | NUR ---
PATIENT IS ALERT AND AWAKE. DENIES ANY NEEDS AT THIS TIME. RECIVED REPORT FROM COMPUTER PATTERNMAKER.
[2019-11-20 08:27] VITALS: BP 143/91
--- NOTE | 2019-11-20 13:10 | MORECARE ---
CASE MANAGEMENT DISCHARGE SUMMARY PATIENT: RAYMOND ANGUIANO UNIT: [id number] ADM DATE: 11/20/19 AGE: 84 : 36 SEX: M ROOM/BED: D.2105 AUTHOR: FLOR GÓMEZ PHYSICIAN: REFERRING PHYSICIAN: CINDY MCNEILL MD DATE OF SERVICE: 11/20/19 Discharge Plan Patient Name: RAYMOND ANGUIANO [facility] [facility] 1935 Planned Disposition: Home Anticipated Discharge Date: Discharge Date: Expected LOS: Initial Reviewer: [email or web address] Initial Review Date: 11/20/2019 Generated: 11/20/19 2:10 pm Coverage Notice Reviewer: [email or web address] Suzette Mora Notice Issued Date-Time: 11/20/2019 9:50 Notice Type: Medicare Outpatient Observation Notice Notice Delivered To: Patient Relationship to Patient: Curator Name: Delivery Method: HAND - Hand Delivered Mily Days: Prior Verbal Notification: Recipient Understood Notice: Yes Recipient Signature: Yes Med Rec Note Co-signed by Attending: Coverage Notice Comment: HASSAN SERVED, EXPLAINED, AND SIGNED BY PATIENT. THE ORIGINAL WAS PROVIDED TO THE PATIENT AND COPY PLACED ON CHART. Patient Name: RAYMOND ANGUIANO Page [phone] at 1310 All edits/amendments must be made on the electronic document DICTATION DATE: 11/20/19 1310 COORDINATE MEASURING MACHINE TECHNICIAN: GE 11/20/19 1310 RPT#: [id number] DC DATE: STATUS: ADM IN [facility] [address] [place] [address] END OF REPORT
--- NOTE | 2019-11-20 13:17 | MORECARE ---
CASE MANAGEMENT DISCHARGE SUMMARY PATIENT: RAYMOND ANGUIANO UNIT: [id number] ADM DATE: 11/20/19 AGE: 84 : 36 SEX: M ROOM/BED: D.2105 AUTHOR: RICO,DOC PHYSICIAN: REFERRING PHYSICIAN: CINDY MCNEILL MD DATE OF SERVICE: 11/20/19 Discharge Plan Patient Name: RAYMOND ANGUIANO Facility: [facility]:[place] : 1935 Planned Disposition: Home Anticipated Discharge Date: Discharge Date: Expected LOS: Initial Reviewer: [email or web address] Initial Review Date: 11/20/2019 Generated: 11/20/19 2:16 pm DCP- Discharge Planning Updated by [email or web address]: Stef Siddiqui on 11/20/19 12:[address] Patient Name: RAYMOND ANGUIANO Admission Status: ER Accout number: [id number] Admission Date: 11-20-2019 : 1935 Admission Diagnosis: Attending: CINDY MCNEILL Current LOS: 1 Anticipated DC Date: Planned Disposition: Home Primary Insurance: MEDICARE A & B Discharge Planning Comments: CM MET WITH PT IN ROOM TO DISCUSS DISCHARGE PLANNING AND NEEDS. PT REPORTS LIVING AT HOME INDEPENDENTLY WITH HIS . PT HAS HOME AND PORTABLE OXGYEN FROM UNKNOWN PROVIDER, STANDARD WALKER AND POWER SCOOTER. PT HAS NO OUTSIDE SERVICES ASSISTING IN THE HOME. CM DISCUSSED AVAILABILITY OF HOME HEALTH, REHAB SERVICES AND MEDICAL EQUIPMENT. PT DENIES DISCHARGE NEEDS AND WOULD LIKE TO DISCHARGE HOME SOON POSSIBLE, REPORTS HIS WILL PICK HIM UP FOR DISCHARGE HOME. PT PLANS TO DISCHARGE HOME WITH SPOUSE, HAS NO ANTICIPATED DISCHARGE NEEDS AT THIS TIME AND FAMILY WILL TRANSPORT HOME AT DISCHARGE. CM TO FOLLOW AND ASSIST IF NEEDED. Telegraph Inspector: Stef Siddiqui DCPIA - Discharge Planning Initial Assessment Updated by [email or web address]: Stef Siddiqui on 11/20/19 1:11 pm * Is the patient Alert and Oriented? Yes * How many steps to enter\exit or inside your home? * PCP DR. CABALLERO * Pharmacy [facility] IN [place] * Preadmission Environment Home with Family * ADLs Independent * Equipment Oxygen Power Chair or Electric Scooter Walker * Other Equipment NO MEDICAL EQUIPMENT PROVIDER PREFERENCE * List name and contact numbers for known caregivers / representatives who currently or will assist patient after discharge: RINA ANGUIANO, SPOUSE, * Verbal permission to speak to the caregivers and representatives has been obtained from the patient. N/A * Community resources currently utilized None * Please name any agencies selected above. NONE * Additional services required to return to the preadmission environment? No * Can the patient safely return to the preadmission environment? Yes * Has this patient been hospitalized within the prior 30 days at any hospital? No Coverage Notice Reviewer: [id number] Suzette Mora Notice Issued Date-Time: 11/20/2019 9:50 Notice Type: Medicare Outpatient Observation Notice Notice Delivered To: Patient Relationship to Patient: Communication Manager Name: Delivery Method: HAND - Hand Delivered Mily Days: Prior Verbal Notification: Recipient Understood Notice: Yes Recipient Signature: Yes Med Rec Note Co-signed by Attending: Coverage Notice Comment: HASSAN SERVED, EXPLAINED, AND SIGNED BY PATIENT. THE ORIGINAL WAS PROVIDED TO THE PATIENT AND COPY PLACED ON CHART. Last DP export: 11/20/19 12:10 p Patient Name: RAYMOND ANGUIANO Page [phone] at 1317 All edits/amendments must be made on the electronic document DICTATION DATE: 11/20/191315 AGENT PRODUCER: GE 11/20/191315 RPT#: [id number] DC DATE: STATUS: ADM IN [facility] [address] [place] [address] END OF REPORT
--- NOTE | 2019-11-20 15:58 | NUR ---
BED BATH AND LINEN CHANGE COMPLETE.
[2019-11-20 16:43] VITALS: BP 174/74
--- NOTE | 2019-11-20 20:10 | NUR ---
PT SITTING UP ON SIDE OF BED. AWAKE ALERT AND ORIENTED x4. NO SIGNS OR SYMPTOMS OF DISTRESS NOTED. RESPIRATIONS EVEN AND UNLABORED. NO COMPLAINTS OF PAIN AT THIS TIME. CALL LIGHT WITH IN REACH. BEDS IN LOWEST POSITION. PT ENCOURAGED TO CALL FOR HELP WHEN GETTINI TO AND FROM BED. WILL CONTINUE TO MONITOR
[2019-11-20 21:45] VITALS: BP 170/73
[2019-11-20 23:50] VITALS: BP 160/59
--- NOTE | 2019-11-21 01:19 | NUR ---
PT ASKED FOR COVERS TO BE PULLED UP. AND LIGHT TO BE TURNED OFF. NO SIGNS OF DISTRESS. CALL LIGHT WITH IN REACH. WILL CONTINUE TO MONITOR
[2019-11-21 05:21] VITALS: BP 143/53
--- NOTE | 2019-11-21 05:24 | NUR ---
I have reviewed this patient and I concur with the Shift Assessment completed by the Licensed Practical Nurse today this shift.
[2019-11-21 06:07] LABS: BASOPHILS 0.2 % (0-2); HEMATOCRIT 32.3 % (42.0-54.0); HEMOGLOBIN 9.9 g/dL (13.5-17.5); IMMATURE GRANULOCYTES 1.7 % (0-5); MCH 29.6 pg (26.0-34.0); MCHC 30.7 g/dL (31.0-37.0); MCV 96.4 fL (80.0-100.0); MEAN PLATELET VOLUME 9.7 fL (7.4-10.4); MONOCYTES 14.1 % (2-11); PLATELET COUNT 247 10x3/uL (130-400); RBC 3.35 10x6/uL (4.20-6.10); RDW 16.3 % (11.5-14.5); WBC 9.9 10x3/uL (4.8-10.8)
[2019-11-21 06:28] LABS: ALBUMIN 2.8 g/dL (3.4-5.0); ANION GAP 11.4 mmol/L (8-16); BILIRUBIN - TOTAL 1.15 mg/dL (0.2-1.3); CALCIUM 8.8 mg/dL (8.5-10.1); CARBON DIOXIDE 30.2 mmol/L (21.0-32.0); CREATININE - SERUM 2.8 mg/dL (0.6-1.3); MAGNESIUM - SERUM 2.2 mg/dL (1.8-2.4); POTASSIUM - SERUM 3.6 mmol/L (3.5-5.1)
[2019-11-21 07:43] LABS: URIC ACID 10.4 mg/dL (2.6-7.2)
--- NOTE | 2019-11-21 08:08 | NUR ---
RECIEVED REPORT. PATIENT IS RESTING ON HIS LEFT SIDE AND STATES THAT HE DOES NOT WANT TO BE BOTHERED.
[2019-11-21 09:30] VITALS: BP 165/67
[2019-11-21 13:18] LABS: PROTEIN - URINE 359.5 mg/dL (0.0-11.9)
[2019-11-21 13:29] LABS: NITRITE NEGATIVE (NEGATIVE)
[2019-11-21 13:30] LABS: BILIRUBIN NEGATIVE (NEGATIVE); GLUCOSE 50 mg/dL (NEGATIVE); KETONE NEGATIVE (NEGATIVE); UROBILINOGEN NORMAL (NORMAL)
[2019-11-21 13:44] VITALS: BP 170/80
--- NOTE | 2019-11-21 19:10 | NUR ---
REPORT RECEIVED, WILL CONTINUE POC. PATIENT IS AAOX4, LYING ON LEFT SIDE. NO S/S OF DISTRESS OBSERVED, RR EVEN AND UNLABORED ON 2L O2 VIA NC. PATIENT DENIES NEEDS AT THIS TIME. CL IN REACH, BED LOCKED AND LOWERED. WILL CTM.
[2019-11-21 20:00] VITALS: BP 170/53
--- NOTE | 2019-11-21 21:05 | NUR ---
HS MEDS ADMINISTERED. FSBS 167 PATIENT REFUSED INSULIN. PATIENT DENIES FURTHER NEEDS AT THIS TIME. KAILA ALARM ON.
[2019-11-22] VITALS (7 sets, daily range): BP systolic 138–198; BP diastolic 52–90
--- NOTE | 2019-11-22 01:30 | NUR ---
I have reviewed this patient and I concur with the Shift Assessment completed by the Licensed Practical Nurse today this shift.
--- NOTE | 2019-11-22 01:40 | NUR ---
PT LYING IN BED RESTING WITH EYES CLOSED. EASILY AWAKEN WITH VOICE STIMULATION NO SIGNS OF DISTRESS NOTED. CALL LIGHT WITH IN REACH AND BED ALARM ON AND ACTIVE. WILL CONTINUE TO MONITOR
[2019-11-22 05:41] LABS: ALBUMIN 2.9 g/dL (3.4-5.0); ANION GAP 12.9 mmol/L (8-16); BILIRUBIN - TOTAL 1.29 mg/dL (0.2-1.3); CALCIUM 8.9 mg/dL (8.5-10.1); CARBON DIOXIDE 29.6 mmol/L (21.0-32.0); MAGNESIUM - SERUM 2.3 mg/dL (1.8-2.4); PHOSPHOROUS 4.7 mg/dL (2.5-4.9); POTASSIUM - SERUM 3.5 mmol/L (3.5-5.1); PROTEIN - SERUM 6.3 g/dL (6.4-8.2)
[2019-11-22 07:45] LABS: BASOPHILS 0.2 % (0-2); EOSINOPHILS 1.2 % (0-7); HEMATOCRIT 31.8 % (42.0-54.0); HEMOGLOBIN 9.9 g/dL (13.5-17.5); IMMATURE GRANULOCYTES 1.6 % (0-5); LYMPHOCYTES 7.5 % (15-50); MCH 30.6 pg (26.0-34.0); MCHC 31.1 g/dL (31.0-37.0); MCV 98.1 fL (80.0-100.0); MEAN PLATELET VOLUME 10.5 fL (7.4-10.4); MONOCYTES 13.6 % (2-11); NEUTROPHILS 75.9 % (40-80); PLATELET COUNT 267 10x3/uL (130-400); RBC 3.24 10x6/uL (4.20-6.10); RDW 16.6 % (11.5-14.5)
[2019-11-22 08:12] LABS: COMPLEMENT C4 23.4 mg/dL (17.4-52.2)
[2019-11-22 08:33] LABS: ERYTHROCYTE SEDIMENTATION RATE 115 mm/hr (0-20)
--- NOTE | 2019-11-22 08:33 | MORECARE ---
CASE MANAGEMENT DISCHARGE SUMMARY PATIENT: RAYMOND ANGUIANO UNIT: [id number] ADM DATE: 11/20/19 AGE: 84 : 36 SEX: M ROOM/BED: D.2105 AUTHOR: RICO,DOC PHYSICIAN: REFERRING PHYSICIAN: CINDY MCNEILL MD DATE OF SERVICE: 11/22/19 Discharge Plan Patient Name: RAYMOND ANGUIANO Facility: [facility]:[place] : 1935 Planned Disposition: Home Anticipated Discharge Date: Discharge Date: Expected LOS: Initial Reviewer: [email or web address] Initial Review Date: 11/20/2019 Generated: 11/22/19 9:32 am DCP- Discharge Planning Updated by [email or web address]: Stef Siddiqui on 11/20/19 12:[address] Patient Name: RAYMOND ANGUIANO Admission Status: ER Accout number: [id number] Admission Date: 11-20-2019 : 1935 Admission Diagnosis: Attending: CINDY MCNEILL Current LOS: 1 Anticipated DC Date: Planned Disposition: Home Primary Insurance: MEDICARE A & B Discharge Planning Comments: CM MET WITH PT IN ROOM TO DISCUSS DISCHARGE PLANNING AND NEEDS. PT REPORTS LIVING AT HOME INDEPENDENTLY WITH HIS . PT HAS HOME AND PORTABLE OXGYEN FROM UNKNOWN PROVIDER, STANDARD WALKER AND POWER SCOOTER. PT HAS NO OUTSIDE SERVICES ASSISTING IN THE HOME. CM DISCUSSED AVAILABILITY OF HOME HEALTH, REHAB SERVICES AND MEDICAL EQUIPMENT. PT DENIES DISCHARGE NEEDS AND WOULD LIKE TO DISCHARGE HOME SOON POSSIBLE, REPORTS HIS WILL PICK HIM UP FOR DISCHARGE HOME. PT PLANS TO DISCHARGE HOME WITH SPOUSE, HAS NO ANTICIPATED DISCHARGE NEEDS AT THIS TIME AND FAMILY WILL TRANSPORT HOME AT DISCHARGE. CM TO FOLLOW AND ASSIST IF NEEDED. Pharmaceutical Salesperson: Stef Siddiqui DCPIA - Discharge Planning Initial Assessment Updated by [id number]: Stef Siddiqui on 11/20/19 1:11 pm * Is the patient Alert and Oriented? Yes * How many steps to enter\exit or inside your home? * PCP DR. CABALLERO * Pharmacy [place] OR [facility] IN [place] * Preadmission Environment Home with Family * ADLs Independent * Equipment Oxygen Power Chair or Electric Scooter Walker * Other Equipment NO MEDICAL EQUIPMENT PROVIDER PREFERENCE * List name and contact numbers for known caregivers / representatives who currently or will assist patient after discharge: RINA ANGUIANO, SPOUSE, * Verbal permission to speak to the caregivers and representatives has been obtained from the patient. N/A * Community resources currently utilized None * Please name any agencies selected above. NONE * Additional services required to return to the preadmission environment? No * Can the patient safely return to the preadmission environment? Yes * Has this patient been hospitalized within the prior 30 days at any hospital? No Coverage Notice Reviewer: [id number] Suzette Mora Notice Issued Date-Time: 11/20/2019 9:50 Notice Type: Medicare Outpatient Observation Notice Notice Delivered To: Patient Relationship to Patient: Osteopathic Physician Name: Delivery Method: HAND - Hand Delivered Mliy Days: Prior Verbal Notification: Recipient Understood Notice: Yes Recipient Signature: Yes Med Rec Note Co-signed by Attending: Coverage Notice Comment: HASSAN SERVED, EXPLAINED, AND SIGNED BY PATIENT. THE ORIGINAL WAS PROVIDED TO THE PATIENT AND COPY PLACED ON CHART. Last DP export: 11/20/19 12:17 p Patient Name: RAYMOND ANGUIANO Page [phone] at 0833 All edits/amendments must be made on the electronic document DICTATION DATE: 11/22/19831 BENEFITS ADVISOR: GE 11/22/19831 RPT#: [id number] DC DATE: STATUS: ADM IN [facility] [address] [place] [address] END OF REPORT
--- NOTE | 2019-11-22 11:41 | NUR ---
24HOUR URINE COLLECTION BEGUN AT 1140.
--- NOTE | 2019-11-22 13:04 | NUR ---
Nutrition Follow-up: Pt sleeping soundly at time of visit. Chart reviewed. Pt ate ~50% of meals yesterday but 0% per record this AM. Noted pt with constipation; Mag Citrate given. Diet: Cardiac, [place] Thick Liquids No new wt; last wt: 205# (11/18) Labs noted: Glu 174, Alb 2.9 Meds noted: Colace, Miralax, Mag Citrate, Humalog, Lasix, Albumin -Change to cardiac carb consistent with consistencies per ST. -Offer Glucerna with meals. -Encourage PO intake and honor food preferences within diet restrictions. -Monitor wt; noted daily wts ordered. -RD following.
--- NOTE | 2019-11-22 13:18 | NUR ---
I have reviewed this patient and I concur with the Shift Assessment completed by the Licensed Practical Nurse today this shift.
--- NOTE | 2019-11-22 20:00 | NUR ---
ASSESSED AT THE BEGINNING OF THE SHIFT. PT IS ALERT AND ORIENTED, ABLE TO VERBALIZE NEEDS. TELEMETRY IS IN [place] AND SHOWING CONTROLED A FIB IN THE 80'S. VERY HARD OF HEARING AND WEARING O2 AT 10 LITERS PER HIGH FLOW. HE HAS A 24 HR URINE GOING THAT STARTED AT 1140 ON 11/22/19. DR RALPH CALLED WITH CONCERNS ABOUT HIS PNEUMONIA AND REQUESTED HE BE TRANSFERED TO ICU. THIS WAS DONE SOON POSSIBLE AFTER RECEIVING A ROOM ASSIGNMENT. REPORT WAS CALLED TO NURSE AND PATIENT WAS TAKEN VIA W/C.
--- NOTE | 2019-11-22 21:00 | NUR ---
RECEIVED TO ROOM, A&O X 4, AMBULATES INDEPENDENTLY. REPORTS SOB AND NAUSEA. SPO2 91% ON 13L HIGH FLOW. 24HR URINE PLACED ON ICE. NO FURTHER NEEDS VOICED AT THIS TIME, WILL CONTINUE TO MONITOR.
--- NOTE | 2019-11-22 21:55 | NUR ---
SAT PT UP IN BED. PT REPORTS SOB. SPO2 88% ON 15L HIGH FLOW NC. WET COUGH NOTED, NON PRODUCTIVE.
--- NOTE | 2019-11-22 23:14 | NUR ---
PT VOIDED 150ML OF CLEAR, DARK URINE. DENIES PAIN. ASSISTED BACK TO SUIPINE POSITION IN BED, HOB RAISED TO 60 DEGREE ANGLE AND FEET LOWERED PER REQUEST. NO FURTHER NEEDS AT THIS TIME.
[2019-11-23] VITALS (24 sets, daily range): BP systolic 133–182; BP diastolic 68–121
--- NOTE | 2019-11-23 01:15 | NUR ---
SITTING UP ONN SIDE OF BED, A&O X 4. RESPIRATIONS NON-LABORED. SPO2 94% ON 15L HF NC, REQUESTS WARM BLANKET. DENIES FURTHER NEEDS AT THIS TIME, CONTINUE PLAN OF CARE.
--- NOTE | 2019-11-23 01:56 | NUR ---
PLACED BACK IN SUPINE POSITION PER REQUEST. SPO2 95% ON 15L HFNC. CTM.
--- NOTE | 2019-11-23 03:15 | NUR ---
SITTING UP ON SIDE OF BED, STATES HE WAS EXPERIENCING SOB WHILE LAYING BACK, BUT SOB HAS SUBSIDED. RESPIRATION NON-LABORED. VS STABLE, SPO2 99% ON 15LITERS HIGH FLOW NASAL CANNULA. NO S/SX OF DISTRESS. ICE WATER GIVEN PER REQUEST. NO FURTHER NEEDS VOICED AT THIS TIME. CTM.
[2019-11-23 03:39] LABS: BASOPHILS 0.1 % (0-2); EOSINOPHILS 0 % (0-7); HEMATOCRIT 26.8 % (42.0-54.0); HEMOGLOBIN 8.3 g/dL (13.5-17.5); IMMATURE GRANULOCYTES 2.4 % (0-5); LYMPHOCYTES 6.5 % (15-50); MCH 29.9 pg (26.0-34.0); MCV 96.4 fL (80.0-100.0); MONOCYTES 4.3 % (2-11); NEUTROPHILS 86.7 % (40-80); PLATELET COUNT 231 10x3/uL (130-400); RBC 2.78 10x6/uL (4.20-6.10); RDW 16.4 % (11.5-14.5); WBC 9.9 10x3/uL (4.8-10.8)
[2019-11-23 03:50] LABS: ALBUMIN 3.2 g/dL (3.4-5.0); BILIRUBIN - TOTAL 1.26 mg/dL (0.2-1.3); CREATININE - SERUM 3.1 mg/dL (0.6-1.3); MAGNESIUM - SERUM 2.9 mg/dL (1.8-2.4); PROTEIN - SERUM 6.5 g/dL (6.4-8.2)
--- NOTE | 2019-11-23 05:46 | NUR ---
I have reviewed this patient and I concur with the Shift Assessment completed by the Licensed Practical Nurse today this shift.
--- NOTE | 2019-11-23 07:00 | NUR ---
ASSESSMENT COMPLETE PER FLOWSHEET. VOICES NO CO AT TIME.
[2019-11-23 11:08] LABS: UPE RAND - ALBUMIN 44.2 % (()); UPE RAND - ALPHA 2 GLOBULIN 13.7 % (()); UPE RAND - BETA GLOBULIN 22.1 % (()); UPE RAND - GAMMA GLOBULIN 14.1 % (())
[2019-11-23 11:08] LABS: SPE - A/G RATIO 1.1 (0.7-1.7); SPE - ALBUMIN 2.8 g/dL (2.9-4.4); SPE - ALPHA-1 GLOBULIN 0.4 g/dL (0.0-0.4); SPE - ALPHA-2 GLOBULIN 0.7 g/dL (0.4-1.0); SPE - BETA GLOBULIN 0.8 g/dL (0.7-1.3); SPE - GAMMA GLOBULIN 0.7 g/dL (0.4-1.8); SPE - M-SPIKE 0.1 g/dL (Not Observed); SPE - TOTAL PROTEIN 5.4 g/dL (6.0-8.5)
--- NOTE | 2019-11-23 12:53 | NUR ---
Nutrition Follow-up: Eating well. 100% x 3 meals yesterday. Noted pt with constipation. Diet: Cardiac Carb Consistent, [place] Thick Liquids PO intake: 50-100% No new wt; last wt: 205# (11/18) Last BM: 11/15 per chart Labs noted: Na 135, Glu 229, Mg 2.9, Alb 3.2 Meds noted: Solumedrol, Lasix, Albumin, Colace, Miralax, Humalog, Zofran -Encourage PO intake and honor food preferences within diet restrictions. -Monitor wt. -RD following.
[2019-11-23 15:37] LABS: CREATININE - SERUM 3.1 mg/dL (0.6-1.3)
[2019-11-23 15:41] LABS: CREATININE - URINE 74.4 mg/dL (30-125)
[2019-11-23 15:44] LABS: PROTEIN - URINE 551.1 mg/dL (0.0-11.9)
--- NOTE | 2019-11-23 16:45 | NUR ---
REFUSED SUPPER. ATE FRUIT.
--- NOTE | 2019-11-23 17:15 | NUR ---
UP ON SIDE OF BED.
--- NOTE | 2019-11-23 19:15 | NUR ---
PT SLEEPING, SITTING ON SIDE OF BED WITH HEAD ON BEDSIDE TABLE, LUNGS DIMINISHED, 02 @ 15L VIA N/C, RIGHT HAND PIV INTACT WITH NS @ KVO, URINAL IN REACH, NO DISTRESS NOTED
--- NOTE | 2019-11-23 21:15 | NUR ---
PT ALERT, VOICES NEEDS, TAKES PO MEDS WITHOUT DIFFICULTY, VITALS STABLE
--- NOTE | 2019-11-23 23:10 | NUR ---
PT REMAINS SITTING ON SIDE OF BED, RESTING QUIETLY, WILL CONT TO MONITOR
[2019-11-24] VITALS (24 sets, daily range): BP systolic 121–183; BP diastolic 71–92
--- NOTE | 2019-11-24 01:00 | NUR ---
PT AROUSES EASILY, VOICES NEEDS, NO C/O @ THIS TIME
[2019-11-24 04:03] LABS: BASOPHILS 0.1 % (0-2); EOSINOPHILS 0 % (0-7); HEMATOCRIT 23.5 % (42.0-54.0); IMMATURE GRANULOCYTES 1.2 % (0-5); LYMPHOCYTES 8.5 % (15-50); MCH 29.8 pg (26.0-34.0); MCHC 31.1 g/dL (31.0-37.0); MCV 95.9 fL (80.0-100.0); MEAN PLATELET VOLUME 9.6 fL (7.4-10.4); MONOCYTES 7.8 % (2-11); NEUTROPHILS 82.4 % (40-80); PLATELET COUNT 269 10x3/uL (130-400); RBC 2.45 10x6/uL (4.20-6.10); RDW 16.5 % (11.5-14.5); WBC 13.4 10x3/uL (4.8-10.8)
[2019-11-24 04:06] LABS: HEMOGLOBIN 7.3 g/dL (13.5-17.5)
[2019-11-24 04:12] LABS: ALBUMIN 3.8 g/dL (3.4-5.0); ANION GAP 13.7 mmol/L (8-16); BILIRUBIN - TOTAL 1.03 mg/dL (0.2-1.3); C-REACTIVE PROTEIN 11.3 mg/dL (0.0-0.9); CALCIUM 9.2 mg/dL (8.5-10.1); CARBON DIOXIDE 28.5 mmol/L (21.0-32.0); CREATININE - SERUM 3.5 mg/dL (0.6-1.3); MAGNESIUM - SERUM 3.3 mg/dL (1.8-2.4); POTASSIUM - SERUM 4.2 mmol/L (3.5-5.1); PROTEIN - SERUM 6.7 g/dL (6.4-8.2)
--- NOTE | 2019-11-24 05:00 | NUR ---
ROCÍO PRINGLE, INFORMED OF PT HGB 7.3, ORDERS RECIEVED FOR REDRAW, PT ALERT WITH NO C/O, REMAINS SITTING ON SIDE OF BED
[2019-11-24 05:46] LABS: HEMATOCRIT 23.6 % (42.0-54.0)
[2019-11-24 05:50] LABS: HEMOGLOBIN 7.4 g/dL (13.5-17.5)
--- NOTE | 2019-11-24 07:00 | NUR ---
BEDSIDE REPORT RECEIVED. SHIFT ASSESSMENT COMPLETED PER FLOWSHEET, SEE FLOWSHEET FOR INFORMATION. NO ACUTE NEEDS NOTED AT THIS TIME. PT SITTING UP ON SIDE ON OF BED LEANED OVER BEDSIDE TABLE WITH A PILLOW, PT STATES "I CAN'T HANDLE LAYING DOWN, I HAVE TO STAY LIKE THIS TO BREATH GOOD" VSS. WILL CONT TO MONITOR.
--- NOTE | 2019-11-24 10:00 | NUR ---
TITRATED PT O2 FROM 15L TO 13L. PT O2 SATS ON 15L WERE 99%, PT 02 SATS ON 13L ARE 95. VSS. WILL CONT TO MONITOR.
--- NOTE | 2019-11-24 10:20 | NUR ---
STARTED BLOOD, AND PT REQUESTED TO LAY BACK IN BED. UPON ASSISSTING PT TO LAY BACK IN BED PT C/O OF SOB, SAT PT UP AND INCREASED 02 TO 14L. VSS. WILL CONT TO MONITOR.
--- NOTE | 2019-11-24 11:00 | NUR ---
PT C/O OF "SOB BUT GETTING BETTER." REASSESSMENT COMPLETED PER FLOWSHEET, SEE FLOWSHEET FOR INFORMATION. VSS. WILL CONT TO MONITOR.
--- NOTE | 2019-11-24 13:00 | NUR ---
PT RESTING ON SIDE OF BED, NO ACUTE NEEDS OR DISTRESS NOTED AT THIS TIME. VSS. WILL CONT TO MONITOR .
--- NOTE | 2019-11-24 15:00 | NUR ---
REASSESSMENT COMPLETED PER FLOWSHEET, SEE FLOWSHEET FOR INFORMATION. PT DENIES ANY ACUTE NEEDS OR DISTRESS AT THIS TIME. VSS. WILL CONT TO MONITOR .
--- NOTE | 2019-11-24 16:00 | NUR ---
ENEMA GIVEN, MODERATE BM NOTED. WILL CONT TO MONITOR.
--- NOTE | 2019-11-24 17:00 | NUR ---
SPOKE WITH SON, UPDATE GIVEN. NO ACUTE NEEDS OR DISTRESS NOTED AT THIS TIME. WILL CONT TO MONITOR.
--- NOTE | 2019-11-24 19:15 | NUR ---
PT AALERT, SITTING ON SIDE OF BED, VAPOTHERM IN USE WITH 30L @ 100%, RIGHT PIV INTACT WITH NS @ KVO, GENERALIZED EDEMA NOTED, WILL CONT TO MONITOR
--- NOTE | 2019-11-24 21:15 | NUR ---
REMAINS SITTING ON SIDE OF BED,TAKES PO MEDS WITHOUT DIFFICULTY, PT REFUSES THICKENED LIQUIDS
--- NOTE | 2019-11-24 23:00 | NUR ---
PT PLACED IN BED IN SITTING POSITION, STATES HE WANTS BOWMAN CATH, IT TAKES TOO MUCH EFFORT TO STAND TO VOID, BOWMAN PLACED, PT TOLERATED WELL, APPROX 400 CC OUT, RETURNED TO SITTING ON SIDE OF BED, STATES HE CANNOT BREATHE, WILL CONT TO MONITOR
[2019-11-25] VITALS (24 sets, daily range): BP systolic 118–179; BP diastolic 61–98; Ht 182.9 cm; Wt 103.4 kg
--- NOTE | 2019-11-25 01:00 | NUR ---
PT SITTING ON SIDE OF BED LEANING ON BEDSIDE TABLE, REMAINS ON VAPOTHERM, NO DISTRESS NOTED
--- NOTE | 2019-11-25 03:00 | NUR ---
PT CALLS FOR NURSE AT TIMES, C/O O2 NOT WORKING, TUBING PINCHED WHEN PT LEANS OVER, REPOSITIONED VAPOTHERM TUBING, VITALS STABLE
[2019-11-25 03:30] LABS: BASOPHILS 0.1 % (0-2); EOSINOPHILS 0 % (0-7); HEMATOCRIT 25.5 % (42.0-54.0); HEMOGLOBIN 7.9 g/dL (13.5-17.5); IMMATURE GRANULOCYTES 2.2 % (0-5); MCH 29.3 pg (26.0-34.0); MCV 94.4 fL (80.0-100.0); MEAN PLATELET VOLUME 9.2 fL (7.4-10.4); NEUTROPHILS 80.7 % (40-80); PLATELET COUNT 259 10x3/uL (130-400); WBC 13.8 10x3/uL (4.8-10.8)
[2019-11-25 04:01] LABS: ALBUMIN 4.3 g/dL (3.4-5.0); ANION GAP 17.7 mmol/L (8-16); BILIRUBIN - TOTAL 1.33 mg/dL (0.2-1.3); CALCIUM 9.4 mg/dL (8.5-10.1); CARBON DIOXIDE 25.4 mmol/L (21.0-32.0); CREATININE - SERUM 3.7 mg/dL (0.6-1.3); POTASSIUM - SERUM 4.1 mmol/L (3.5-5.1); PROTEIN - SERUM 6.8 g/dL (6.4-8.2)
--- NOTE | 2019-11-25 04:20 | NUR ---
PT SPO2 DOWN TO 40, WENT TO ROOM, PT SITTING ON SIDE OF BED, RT DRAWING ABGS, PT HAS VAPOTHERM PULLED OFF, REPLACED VAPOTHERM, SPO2 RETURNED TO 90'S AFTER SEVERAL MINUTES, NO DISTRESS NOTED
--- NOTE | 2019-11-25 07:00 | NUR ---
BEDSIDE REPORT RECEIVED. SHIFT ASSESSMENT COMPLETED PER FLOWSHEET, SEE FLOWSHEET FOR INFORMATION. PT 02 SAT IS 91% ON 40L 100% VAPOTHERM. PT STATES "I FEEL FINE" WILL CONT TO MONITOR.
--- NOTE | 2019-11-25 09:00 | NUR ---
ASSISSTED PT TO SIT IN CHAIR PER PT REQUEST, "PLEASE, I JUST WANT TO SIT IN THE CHAIR BEFORE I ". MINIMAL PHYSICAL ASSIST. WILL CONT TO MONITOR.
--- NOTE | 2019-11-25 10:00 | NUR ---
PT PUT ON BIPAP 04/03 100% DUE TO DECREASED 02 SATS. 02 SATS ON 100% BIPAP ARE 99%. WILL CONT TO MONITOR.
--- NOTE | 2019-11-25 11:00 | NUR ---
REASSESSMENT COMPLETED PER FLOWSHEET, SEE FLOWSHEET FOR INFORMATION. PT ON BIPAP, 02 SATS ARE 93%. WILL CONT TO MONITOR.
--- NOTE | 2019-11-25 13:00 | NUR ---
PT RESTING IN BED WITH EYES CLOSED FOR THE FIRST TIME IN THE PAST 2 DAYS, WELL NEEDED REST. VSS. WILL CONT TO MONITOR.
--- NOTE | 2019-11-25 14:10 | NUR ---
PAGED . SPOKE WITH , NEW ORDERS RECEIVED. WILL CONT TO MONITOR.
--- NOTE | 2019-11-25 14:30 | NUR ---
PAGED , NEW ORDERS RECEIVED. WILL CONT TO MONITOR.
--- NOTE | 2019-11-25 15:00 | NUR ---
REASSESSMENT COMPLETED PER FLOWSHEET, SEE FLOWSHEET FOR INFORMATION. CLEAN LINEN LIQUID BM NOTED. WILL CONT TO MONITOR.
--- NOTE | 2019-11-25 15:00 | NUR ---
REASSESSMENT COMPLETED PER FLOWSHEET, SEE FLOWSHEET FOR INFORMATION. PT C/O NOT BEING ABLE TO BREATH WITH BIPAP MASK ON AND WANTS TO GO BACK ON NC. INFORMED PT WHY WE ARE USING BIPAP AND RISKS IF IT IS TAKEN OFF. PT ROLLED HIS EYES. VSS. WILL CONT TO MONITOR.
--- NOTE | 2019-11-25 16:54 | NUR ---
PAGED ANESTHESIA 3 TIMES. CALL RECEIVED FROM . WILL CONT TO MONITOR.
--- NOTE | 2019-11-25 17:00 | NUR ---
PT INTUBATED PER . PROPOFOL GIVEN, COPIOUS AMOUNTS OF BRIGHT RED BLOOD NOTED DURING INTUBATION. SUCTIONED COPIOUS AMOUNTS OF BRIGHT RED BLOOD FROM ETT AFTER INTUBATION. APPROVED OF A CVL, PAGED . NEW ORDERS RECEIVED.
--- NOTE | 2019-11-25 17:31 | NUR ---
dr baig called.. paged back consent for cvl obtained
--- NOTE | 2019-11-25 17:40 | NUR ---
SPOKE WITH SHERLYN HAYWOOD, CHASTITY ORDERED A TRIALYSIS CATHETER TO BE INSERTED. WILL CONT TO MONITOR.
[2019-11-25 18:04] LABS: INR 1.78 (0.85-1.17); PROTIME 20.5 SECONDS (11.6-15.0)
[2019-11-25 18:05] LABS: APTT 45.8 SECONDS (22.8-39.4)
--- NOTE | 2019-11-25 18:45 | NUR ---
ORDER FOR RACIEMEC VIA TELPHONE FROM DR HOPKINS
--- NOTE | 2019-11-25 18:45 | NUR ---
DR SAMANIEGO AT BEDSIDE
--- NOTE | 2019-11-25 18:45 | NUR ---
AT BEDSIDE. TRIALYSIS CATH INSERTED. PT STILL BLEEDING FROM INSERTION SITE, SAND BAG APPLIED. NOTIFIED. WILL CONT TO MONITOR.
--- NOTE | 2019-11-25 18:50 | NUR ---
DR SAMANIEGO AT BEDSIDE, XRAY AT BEDSIDE, DR SAMANIEGO OK'D TRIALYSIS CATH FOR NURSING USE AT THIS TIME. - RECEIVED REPORT FROM OFF GOING NURSE, PT HAS ORDERS FOR 2 UNITS PRBC. BRIGHT RED BLOOD NOTED IN ET TUBE AT THIS TIME. WILL CONTINUE TO CLOSELY MONITOR
--- NOTE | 2019-11-25 19:10 | NUR ---
1 PRBC INITIATED AT THIS TIME. AXILLARY TEMP 95.7 - PLACED WARM BLANKET X2 - MINIMAL BLEEDING TO CETRAL LINE NOTED. SANDBAG IN PLACE. CAN USE SURGI SEAL OR ALTERNATIVE PER DAEN AT BEDSIDE IF CONTINUED BLEEDING. PATIENT SAT 88% 100% 02
--- NOTE | 2019-11-25 19:30 | NUR ---
RT AT BEDSIDE FOR ABG REDRAW -
--- NOTE | 2019-11-25 19:34 | NUR ---
SPOKE WITH AND SON. BOTH STATED HE IS A FULL CODE. WILL CONT TO MONITOR.
--- NOTE | 2019-11-25 20:30 | NUR ---
DR HOPKINS PAGERadha FOR LAB RESULTS, RETURNED CALL AT THIS TIME - NO NEW ORDERS RECEIVED
--- NOTE | 2019-11-25 22:45 | NUR ---
1 UNIT PRBC INITIATED PER ORDER
--- NOTE | 2019-11-25 23:15 | NUR ---
REASSESSMENT COMPLETED, BRIGHT RED BLOOD STILL NOTED AT CENTRAL LINE, ETT, AND BOWMAN CATHETER SITES. VSS. SEE FLOWSHEET FOR FULL ASESSMENT WILL CONTINUE TO CLOSELY MONITOR
[2019-11-26] VITALS (24 sets, daily range): BP systolic 97–161; BP diastolic 51–91
--- NOTE | 2019-11-26 02:15 | NUR ---
BM NOTED AT THIS TIME, FULL LINEN CHANGE COMPLETED
--- NOTE | 2019-11-26 03:24 | NUR ---
PATIENT HAD BM X1 - FULL CHG BATH AND LINEN CHANGE COMPLETED AT THIS TIME
[2019-11-26 06:15] LABS: BASOPHILS 0.1 % (0-2); EOSINOPHILS 0 % (0-7); HEMOGLOBIN 7.9 g/dL (13.5-17.5); IMMATURE GRANULOCYTES 2.4 % (0-5); LYMPHOCYTES 9.4 % (15-50); MCH 29.2 pg (26.0-34.0); MCHC 31.6 g/dL (31.0-37.0); MEAN PLATELET VOLUME 9.7 fL (7.4-10.4); MONOCYTES 7.9 % (2-11); NEUTROPHILS 80.2 % (40-80); RBC 2.71 10x6/uL (4.20-6.10); WBC 14.8 10x3/uL (4.8-10.8)
[2019-11-26 06:20] LABS: MCV 92.3 fL (80.0-100.0); PLATELET COUNT 149 10x3/uL (130-400)
[2019-11-26 06:35] LABS: ANION GAP 14.9 mmol/L (8-16); BILIRUBIN - TOTAL 1.65 mg/dL (0.2-1.3); CALCIUM 8.9 mg/dL (8.5-10.1); CARBON DIOXIDE 25.9 mmol/L (21.0-32.0); CREATININE - SERUM 3.9 mg/dL (0.6-1.3); POTASSIUM - SERUM 3.8 mmol/L (3.5-5.1); PROTEIN - SERUM 5.8 g/dL (6.4-8.2)
--- NOTE | 2019-11-26 07:00 | NUR ---
REPORT RECEIVED. ASSESSMENT COMPLETE PER FLOW SHEET. VSS. PT RESTING COMFORTABLY WILL CONTINUE TO MONITOR
--- NOTE | 2019-11-26 08:40 | NUR ---
Nutrition follow-up: Pt now intubated, sedated NPO Dialysis to start Labs reviewed Wt: 205# Will need nutrition support started within 24-48 hours if medically feasible. Recommend Nepro @ goal rate of 40 ml/hr RDN following.
--- NOTE | 2019-11-26 11:00 | NUR ---
REASSESSMENT COMPLETE PER FLOW SHEET. VSS. PT RESTING COMFORTABLY WILL CONTINUE TO MONITOR
--- NOTE | 2019-11-26 15:20 | NUR ---
REASSESSMENT COMPLETE PER FLOW SHEET. VSS. PT RESTING COMFORTABLY WILL CONTINUE KRISTIN ONITOR
[2019-11-26 17:29] LABS: HEMATOCRIT 31.5 % (42.0-54.0); HEMOGLOBIN 10.3 g/dL (13.5-17.5); MCH 30.1 pg (26.0-34.0); MCHC 32.7 g/dL (31.0-37.0); MCV 92.1 fL (80.0-100.0); MEAN PLATELET VOLUME 10.1 fL (7.4-10.4); PLATELET COUNT 150 10x3/uL (130-400); RBC 3.42 10x6/uL (4.20-6.10); RDW 17.2 % (11.5-14.5); WBC 20.6 10x3/uL (4.8-10.8)
--- NOTE | 2019-11-26 19:00 | NUR ---
REPORT RECEIVED. PT SEDATED ON VENT. ASSESSMENT COMPLETED, SEE FLOWSHEET. PIV IN RT HAND, LT SUBCLAVIAN TRIALYSIS PORT INFUSING, SEE IV FLOWSHEET. WILL CONTINUE TO MONITOR.
[2019-11-26 19:58] LABS: EOSINOPHILS 2 % (0-7); LYMPHOCYTES 5 % (15-50); MONOCYTES 1 % (2-11); NEUTROPHILS 92 % (40-80); PLATELET ESTIMATE NORMAL
[2019-11-27] VITALS (19 sets, daily range): BP systolic 124–166; BP diastolic 71–88
[2019-11-27 06:40] LABS: INR 1.45 (0.85-1.17); PROTIME 17.5 SECONDS (11.6-15.0)
[2019-11-27 06:46] LABS: BASOPHILS 0.4 % (0-2); EOSINOPHILS 0 % (0-7); HEMATOCRIT 29.7 % (42.0-54.0); HEMOGLOBIN 9.7 g/dL (13.5-17.5); LYMPHOCYTES 9.4 % (15-50); MCH 30.4 pg (26.0-34.0); MCHC 32.7 g/dL (31.0-37.0); MCV 93.1 fL (80.0-100.0); MEAN PLATELET VOLUME 10.2 fL (7.4-10.4); MONOCYTES 7.4 % (2-11); NEUTROPHILS 76.8 % (40-80); PLATELET COUNT 129 10x3/uL (130-400); RBC 3.19 10x6/uL (4.20-6.10); RDW 17.6 % (11.5-14.5); WBC 17.5 10x3/uL (4.8-10.8)
[2019-11-27 06:53] LABS: ALBUMIN 4.3 g/dL (3.4-5.0); ANION GAP 17.8 mmol/L (8-16); BILIRUBIN - TOTAL 1.69 mg/dL (0.2-1.3); CALCIUM 8.2 mg/dL (8.5-10.1); CREATININE - SERUM 3.4 mg/dL (0.6-1.3); POTASSIUM - SERUM 4.8 mmol/L (3.5-5.1); PROTEIN - SERUM 6.5 g/dL (6.4-8.2); VANCOMYCIN - RANDOM 28.3 ug/mL (10.0-20.0)
--- NOTE | 2019-11-27 07:15 | NUR ---
REPORT RECEIVED. ASSESSMENT COMPLETE PER FLOW SHEET.VSS. PT RESTING COMFORTABLYW ILL CONTINUE TO MONITOR
[2019-11-27 08:09] LABS: HEPATITIS C ANTIBODY <0.1 S/CO RAT (0.0-0.9)
--- NOTE | 2019-11-27 09:15 | NUR ---
DR QUIGLEY AT BEDSIDE. BRONCH ADM. NEEDS MET
[2019-11-27 10:35] LABS: MACROPHAGES BF 29 %; NEUT - BF 46 %
[2019-11-27 14:08] LABS: ANCA - ANTIMYELOPEROXIDASE <9.0 U/mL (0.0-9.0); ANCA - ANTIPROTEINASE 3 <3.5 U/mL (0.0-3.5); ANCA - ATYPICAL <1:20 titer (Neg:<1:20); ANCA - CYTOPLASMIC <1:20 titer (Neg:<1:20); ANCA - PERINUCLEAR <1:20 titer (Neg:<1:20)
--- NOTE | 2019-11-27 19:30 | NUR ---
PT SEDATED/INTUBATED. CRACKLES/DIMINISHED LUNG SOUNDS. SPO2 100, FIO2 40. ORAL CARE PROVIDED AT THIS TIME. PERIPHERAL PULSES PRESENT. BOWEL SOUNDS ACTIVE IN ALL QUADRANTS, OGT TO PULMOCARE, RESIDUAL 20ML. BOWMAN CATH INTACT. PT REPOSITIONED WITH PROMINENCES BRIDGED. ROOM VISIBLE FROM NURSES STATION. CPOC.
--- NOTE | 2019-11-27 21:00 | NUR ---
HS MEDS GIVEN AT THIS TIME. PT REPOSITIONED WITH PROMINENCES BRIDGED, PARTIAL LINEN CHANGE PROVIDED. BOWMAN CATH CARE COMPLETED. ORAL CARE COMPLETED. VSS, CPOC.
--- NOTE | 2019-11-27 23:30 | NUR ---
REASSESSMENT COMPLETE, NO NEW CHANGES AT THIS TIME. PT REPOSITIONED WITH PROMINENCES BRIDGED. ORAL CARE PROVIDED. CPOC.
[2019-11-28] VITALS (24 sets, daily range): BP systolic 107–159; BP diastolic 59–89
--- NOTE | 2019-11-28 01:15 | NUR ---
NO CHANGES AT THIS TIME. VSS, NO S/S OF PAIN. PT REPOSITIONED WITH PROMINENCES BRIDGED. CPOC.
--- NOTE | 2019-11-28 03:33 | NUR ---
REASSESSMENT COMPLETE, NO NEW CHANGES AT THIS TIME. PT REPOSITIONED WITH PROMINENCES BRIDGED, PARTIAL LINEN CHANGE. ORAL CARE PROVIDED. CPOC.
[2019-11-28 04:07] LABS: HEPATITIS BE ANTIGEN Negative (Negative)
[2019-11-28 06:21] LABS: ALBUMIN 4.2 g/dL (3.4-5.0); ANION GAP 13.8 mmol/L (8-16); BILIRUBIN - TOTAL 1.63 mg/dL (0.2-1.3); CALCIUM 8.3 mg/dL (8.5-10.1); CARBON DIOXIDE 26.4 mmol/L (21.0-32.0); CREATININE - SERUM 2.7 mg/dL (0.6-1.3); POTASSIUM - SERUM 4.2 mmol/L (3.5-5.1); PROTEIN - SERUM 6.2 g/dL (6.4-8.2)
--- NOTE | 2019-11-28 06:24 | NUR ---
LARGE LOOSE BM, BATH PROVIDED AND LINENS CHANGED
[2019-11-28 06:37] LABS: HEMATOCRIT 27.6 % (42.0-54.0); HEMOGLOBIN 8.7 g/dL (13.5-17.5); MCH 29.7 pg (26.0-34.0); MCHC 31.5 g/dL (31.0-37.0); MCV 94.2 fL (80.0-100.0); PLATELET COUNT 112 10x3/uL (130-400); RBC 2.93 10x6/uL (4.20-6.10); RDW 17.4 % (11.5-14.5)
[2019-11-28 06:41] LABS: WBC 13.1 10x3/uL (4.8-10.8)
--- NOTE | 2019-11-28 07:00 | NUR ---
REPORT RECEIVED. ASSESSMENT COMPLETE PER FLOW SHEET. VSS. PT RESTING COMFORTABLYWILL CONTINUE TO MONITOR
[2019-11-28 07:46] LABS: LYMPHOCYTES 6 % (15-50); MONOCYTES 7 % (2-11); NEUTROPHILS 81 % (40-80); PLATELET ESTIMATE DECREASED
--- NOTE | 2019-11-28 09:00 | NUR ---
ORAL EDNOTRACH CARE ADM. VSS. REPOSITIONED FOR COMFORT. WILL CONTINUE TO MONITOR
--- NOTE | 2019-11-28 10:08 | NUR ---
Nutrition follow-up: Inutbated, sedated with propofol Pulmocare infusing @ 40 ml/hr Labs reviewed RDN following.
--- NOTE | 2019-11-28 10:40 | NUR ---
REASSESSMENT COMPLETE PER FLOW SHEET. VSS. PT RESTING COMFORTABLY WILL CONTINUE TO MONITOR
[2019-11-28 11:08] LABS: FUNGUS STAIN Final report (())
[2019-11-28 12:08] LABS: HEPATITIS BE ANTIBODY Negative (Negative)
--- NOTE | 2019-11-28 13:15 | NUR ---
PT O2 SAT 70% RT NOTIFIED DR QUIGLEY NOTIFIED O2 INCREASED TO 80% O2 SAT 91%
--- NOTE | 2019-11-28 14:57 | NUR ---
REASSESSMENT COMPLETE PER FLOW SHEET. VSS. PT RESTING COMFORTABLY WILL CONTINUE TO MONITOR
[2019-11-29] VITALS (25 sets, daily range): BP systolic 86–139; BP diastolic 53–82
--- NOTE | 2019-11-29 00:12 | NUR ---
SHAY ALFORD R/T PT TEMP
--- NOTE | 2019-11-29 00:26 | NUR ---
SHAY JAIMES APN RETURNED PAGE, UPDATE GIVEN ON PT, INFORMED OF INCREASED TEMP, ORDERS RECEIVED FOR OGT TYLENOL, WITH BLOOD CULTURES VIA CVL AND VENOUS SITES, NO FURTHER AT THIS TIME WILL CONTINUE TO MONITOR
--- NOTE | 2019-11-29 00:54 | NUR ---
LAB CALLED R/T STAT BLOOD CULTURES, JO ANN IN LAB STATED " TECH WILL BE IN ICU SHORTLY"
--- NOTE | 2019-11-29 01:35 | NUR ---
CULTURES DRAWN AND SENT TO LAB
--- NOTE | 2019-11-29 02:30 | NUR ---
SHAY CROCKETT APRN PAGED R/T LEFT HAND PIV CULTURES SENT TO LAB, UPDATE GIVEN, ORDERS RECEIVED: ULTRASOUND VENOUS DOPPLER OF LEFT ARM IN MORNING, NO FURTHER AT THIS TIME WILL CONTINUE TO MONITOR
[2019-11-29 04:47] LABS: BASOPHILS 0.2 % (0-2); EOSINOPHILS 0.1 % (0-7); HEMOGLOBIN 8.8 g/dL (13.5-17.5); IMMATURE GRANULOCYTES 5.3 % (0-5); LYMPHOCYTES 9.3 % (15-50); MCH 29.6 pg (26.0-34.0); MCHC 31.4 g/dL (31.0-37.0); MCV 94.3 fL (80.0-100.0); MEAN PLATELET VOLUME 9.7 fL (7.4-10.4); MONOCYTES 6.3 % (2-11); NEUTROPHILS 78.8 % (40-80); PLATELET COUNT 109 10x3/uL (130-400); RBC 2.97 10x6/uL (4.20-6.10); RDW 17.1 % (11.5-14.5)
[2019-11-29 04:50] LABS: WBC 19.3 10x3/uL (4.8-10.8)
[2019-11-29 04:57] LABS: ALBUMIN 4.3 g/dL (3.4-5.0); BILIRUBIN - TOTAL 1.56 mg/dL (0.2-1.3); CALCIUM 8.1 mg/dL (8.5-10.1); CARBON DIOXIDE 25.6 mmol/L (21.0-32.0); PROTEIN - SERUM 6.1 g/dL (6.4-8.2); VANCOMYCIN - RANDOM 35.3 ug/mL (10.0-20.0)
[2019-11-29 05:00] LABS: ANION GAP 19.3 mmol/L (8-16); CREATININE - SERUM 4.1 mg/dL (0.6-1.3); POTASSIUM - SERUM 4.9 mmol/L (3.5-5.1)
--- NOTE | 2019-11-29 08:00 | NUR ---
DR QUIGLEY AT BEDSIDE. UPDATE GIVEN. ORDER RECEIVED TO STOP SEDATION. WILL CONTINUE TO MONITOR
--- NOTE | 2019-11-29 11:54 | NUR ---
DR MCNEILL IN ROOM. UPDATE GIVEN. NO NEW ORDERS AT THIS TIME. WILL CONTINUE TO MONITOR
--- NOTE | 2019-11-29 12:56 | NUR ---
DIALYSIS IN ROOM SETTING UP MACHINES. WILL CONTINUE TO MONITOR
--- NOTE | 2019-11-29 16:00 | NUR ---
PT FINISHED WITH DIALYSIS. TOLERATED WELL. WILL CONTINUE TO MONITOR
--- NOTE | 2019-11-29 18:22 | NUR ---
CHANGED PT TUBE FEED BAG. PT RESTING IN BED. WILL CONTINUE TO MONITOR
--- NOTE | 2019-11-29 19:00 | NUR ---
REPORT RECEIVED FROM THE OFF GOING RN. SEE ASSESSMENT IN THE PTS FLOW SHEET. PT ON THE VENTILATOR. VSS AT THIS TIME. NO RESIDUAL IN THE OGT. PATENCY CHECKED BY ASCULTATION. CALL LIGHT IN REACH. WILL CONT POC.
--- NOTE | 2019-11-29 19:40 | NUR ---
SPOKE WITH DR MCNEILL AND DR QUIGLEY ABOUT THE DVTS IN THE LEFT ARM AND INTERNAL JUGULAR VEIN. ORDERS FOR HEPARIN PER PROTOCHOL.
[2019-11-29 20:38] LABS: HEMATOCRIT 30.7 % (42.0-54.0); HEMOGLOBIN 9.5 g/dL (13.5-17.5); MCH 29.4 pg (26.0-34.0); MCHC 30.9 g/dL (31.0-37.0); MEAN PLATELET VOLUME 9.6 fL (7.4-10.4); RBC 3.23 10x6/uL (4.20-6.10); RDW 16.8 % (11.5-14.5); WBC 15.6 10x3/uL (4.8-10.8)
[2019-11-29 20:51] LABS: APTT 29.4 SECONDS (22.8-39.4); INR 1.26 (0.85-1.17); PROTIME 15.8 SECONDS (11.6-15.0)
--- NOTE | 2019-11-29 23:00 | NUR ---
REASSESSMENT COMPLETED. SEE FLOW SHEET. CALL LIGHT IN REACH. WILL CONT POC.
[2019-11-30] VITALS (24 sets, daily range): BP systolic 117–188; BP diastolic 66–95
--- NOTE | 2019-11-30 | NUR ---
LEFT SUBCLAVIAN DRESSING CHANGED. SMALL AMOUNT OF BLOOD NOTED BUT BLEEDING STOPPED. CALL LIGHT IN REACH. WILL CONT POC.
--- NOTE | 2019-11-30 01:09 | NUR ---
PT NOTED TO HAVE A LARGE DIARREHA BM. FULL BEDBATH GIVEN AND LINEN CHANGE. BUTTOCKS RED AND EXCORIATED. BILATERAL HEEL RED AND NON BLANCHABLE. ALL EXTRIMITES FLOATED WITH PILLOWS. MEPILEX APPLIED TO BUTTOCKS. PT WEDGED WITH A PILLOW. PT TOLERATED WELL WITH NO DESATURATION. CALL LIGHT IN REACH. WILL CONT POC.
[2019-11-30 02:33] LABS: BASOPHILS 0.1 % (0-2); EOSINOPHILS 0 % (0-7); HEMATOCRIT 28.6 % (42.0-54.0); HEMOGLOBIN 8.9 g/dL (13.5-17.5); IMMATURE GRANULOCYTES 5.2 % (0-5); LYMPHOCYTES 10.1 % (15-50); MCH 29.6 pg (26.0-34.0); MCHC 31.1 g/dL (31.0-37.0); MEAN PLATELET VOLUME 9.9 fL (7.4-10.4); NEUTROPHILS 78.6 % (40-80); PLATELET COUNT 107 10x3/uL (130-400); RBC 3.01 10x6/uL (4.20-6.10); RDW 16.8 % (11.5-14.5); WBC 17.1 10x3/uL (4.8-10.8)
[2019-11-30 02:43] LABS: ANION GAP 18.2 mmol/L (8-16); CALCIUM 8.4 mg/dL (8.5-10.1); CARBON DIOXIDE 25.6 mmol/L (21.0-32.0); CREATININE - SERUM 3.5 mg/dL (0.6-1.3); PHOSPHOROUS 7.5 mg/dL (2.5-4.9); POTASSIUM - SERUM 4.8 mmol/L (3.5-5.1); VANCOMYCIN - RANDOM 26.4 ug/mL (10.0-20.0)
--- NOTE | 2019-11-30 03:31 | NUR ---
PTT RESULTS IN. HOLDING FOR 1 HOUR PER ORDERS. SEE HEPARIN FLOW SHEET. WILL ONT POC.
--- NOTE | 2019-11-30 06:38 | NUR ---
FSBS. RESULTS READ TO DR LANDA. SEE ORDERS.
--- NOTE | 2019-11-30 07:15 | NUR ---
REPORT RECEIVED. ON VENT. OGT. PULMOCARE. LEFT SUBC WITH TRIALYSIS CATH. PT HAS BOWMAN. HEPARIN INFUSING. VSS. WILL CONTINUE TO MONITOR.
[2019-11-30 09:09] LABS: ANTI-GLOMERULAR BASMENT MEMBRN 3 units (0-20)
--- NOTE | 2019-11-30 10:45 | NUR ---
APTT DRAWN AND 72.5. NO CHANGE IN HEPARIN RATE PER PROTOCOL. REDRAW IN MORNING PER PROTOCOL.
--- NOTE | 2019-11-30 12:47 | NUR ---
Nutrition Follow-up: Pt remains intubated. Receiving Pulmocare @ 30 mL/hr this AM. HD today. Diet: Pulmocare - goal rate 40 mL/hr Wt: 210.5# (11/28) Last BM: 11/29 Labs noted: Glu 356, Ca 8.4, PO4 7.5 Meds noted: Humalog, albumin, Colace, Miralax -TF managed by MD; rec may consider changing to Nepro 2/2 hyperphosphatemia, HD. -Monitor wt. -RD following.
[2019-11-30 13:09] LABS: ANTIPROTEINASE 3 (PR-3) <3.5 U/mL (0.0-3.5)
--- NOTE | 2019-11-30 14:09 | NUR ---
PT REPOSITIONED. VSS. WILL CONTINUE TO MONITOR.
--- NOTE | 2019-11-30 17:30 | NUR ---
DIALYSIS IN WITH PT.
--- NOTE | 2019-11-30 19:00 | NUR ---
RECIVED REPORT AT BEDSIDE. PT IS RECIEVING DIALYSIS IN HIS ROOM AT THIS TIME. DIAYLJASE RN IS AT BEDSIDE. PT IS VENTILATED. VS ARE STABLE. HR IS 90 CONTROLLED A.FIB WITH OCCASIONAL PVC NOTED. LEFT SUBCLAVIN CENTRAL LINE IS SLOWLY OOSING DARK RED BLOOD. RECIVED IN SHIFT REPORT THAT THIS HAS BEEN THIS WAY AND THAT THE DOCTOR HAS BEEN NOTIFIED AND TO JUST CONTINUE TO MONITOR. I PERFORMED A FULL-ASSESSMENT AND WILL DOCUMENT IN FLOW SHEET. I BRIDGED HEELS OFF THE BED WHILE SUPPORTING THE KNEES. BOWMAN CATHETOR BAG IS OBSERVED HANGING BELOW THE BLADDER TO GRAVITY WITH A SMALL ABOUT OF DARK CARYN URINE. BED IS LOW,SIDE RAISLX2,CALL LIG WITHIN [facility]. I WILL CONTINUE TO MONITOR.
--- NOTE | 2019-11-30 19:20 | NUR ---
CHECKED PT BS AND IT IS 167. PT IS IN THE MIDDLE OF DIALYSIS FOR THE NEXT 45 MINUTES. CONSERVATION EDUCATOR VOICED THAT IT CAN COME DOWN THROUGH DIAYLSIS SO I WILL RECHECK IN AN HOUR TO SEE WHERE THE PT BS STANDS THEN AND TREAT IF NEEDED.
--- NOTE | 2019-11-30 21:00 | NUR ---
RECHECK PT BS AT THIS TIME. IT WAS 199, SO ADMINISTERED 4 UNITS OF HUMALOG ORDERED PER SLIDING SCALE. PT IS RESTING WITH EYES CLOSED. VSS. OGJ HAS LESS THAN 5ML OF RESIDUAL. ADMINSITERED SCHEDULED MEDS THROUGH OJT WITH 30 TOTAL ML OF H2O TO DISOLVE AND FLUSH MEDS THROUGH TUBE. PT TOLERATED WELL. RESUMED FEEDINGS ORDERED. BED IS LOW,SIDE RAILSX2,CALL LIG WITHIN REACH. WILL CONTINUE TO MONITOR
--- NOTE | 2019-11-30 23:07 | NUR ---
JUST GAVE REPORT TO VALE COREAS. PT IS IN STABLE CONDITION
--- NOTE | 2019-11-30 23:31 | NUR ---
RECEIVED PATIENT CARE - SHIFT ASSESSMENT COMPLETED SEE FLOWSHEET - BLOOD NOTED ON LEFT SUBCLAVIAN DRESSING, MEPILEX NOTED ON COCCYX. PATIENT TURNED AND ORAL CARE PERFORMED, VSS CPOC
[2019-12-01] VITALS (22 sets, daily range): BP systolic 84–189; BP diastolic 50–87
--- NOTE | 2019-12-01 02:02 | NUR ---
PT INTUBATED/SEDATED NO ACUTE CHANGES NSR WITH OCCASIONAL PVC NOTED ON MONITOR, VSS CPOC
--- NOTE | 2019-12-01 03:45 | NUR ---
REASSESSMENT COMPLETED SEE FLOWSHEET
--- NOTE | 2019-12-01 05:30 | NUR ---
SPOKE WITH DR ALARCON - GAVE PATIENT UPDATE NEW ORDERS RECEIVED
[2019-12-01 05:40] LABS: ANION GAP 15.6 mmol/L (8-16); CALCIUM 8.4 mg/dL (8.5-10.1); CARBON DIOXIDE 27.2 mmol/L (21.0-32.0); POTASSIUM - SERUM 4.8 mmol/L (3.5-5.1); VANCOMYCIN - RANDOM 24.5 ug/mL (10.0-20.0)
[2019-12-01 05:44] LABS: PHOSPHOROUS 5.2 mg/dL (2.5-4.9)
[2019-12-01 05:47] LABS: HEMATOCRIT 26.1 % (42.0-54.0); HEMOGLOBIN 8.2 g/dL (13.5-17.5); MCH 29.9 pg (26.0-34.0); MCHC 31.4 g/dL (31.0-37.0); MCV 95.3 fL (80.0-100.0); MEAN PLATELET VOLUME 10.6 fL (7.4-10.4); PLATELET COUNT 118 10x3/uL (130-400); RBC 2.74 10x6/uL (4.20-6.10); RDW 17.1 % (11.5-14.5); WBC 22.6 10x3/uL (4.8-10.8)
[2019-12-01 06:50] LABS: HYPOCHROMASIA 3+; LYMPHOCYTES 15 % (15-50); MONOCYTES 3 % (2-11); NEUTROPHILS 82 % (40-80); PLATELET ESTIMATE NORMAL
--- NOTE | 2019-12-01 15:54 | NUR ---
DR KIM AT AND HE STATES"WILL NOT DCD CVL TODAY". DR KIM SPOKE TO DR MCNEILL IN ICU.
--- NOTE | 2019-12-01 17:10 | NUR ---
PT TAKEN TO CT DEPT FOR CT. VENT MGNT BY RT.
[2019-12-01 18:18] LABS: BILIRUBIN NEGATIVE (NEGATIVE); GLUCOSE 50 mg/dL (NEGATIVE); KETONE NEGATIVE (NEGATIVE); NITRITE NEGATIVE (NEGATIVE); UROBILINOGEN NORMAL (NORMAL)
[2019-12-01 18:21] LABS: BACTERIA MANY /hpf (NEGATIVE); EPITHELIAL CELLS 0-5 /hpf (0-5); RED CELLS - URINE 25-50 /hpf (0-5)
[2019-12-01 18:22] LABS: AMORPHOUS SEDIMENT >1+ /lpf (NONE SEEN)
[2019-12-02] VITALS (23 sets, daily range): BP systolic 101–186; BP diastolic 39–94
--- NOTE | 2019-12-02 00:49 | NUR ---
1900 PT ASSESSMENT COMPLETED AT THIS TIME, NO CHANGES NOTED FROM NURSE REPORT, PT DOES NOTED AROUSE TO STIMULATION, B/P LOW AT THIS TIME, PT ON HD, DIALYSIS NURSE ADVISED THAT SHE IS ADJUSTING THE FLOW AND DECREASING FLUID REMOVED, WILL MONITOR FOR CHANGES 2010 DR NELSON CALLED AND WAS UPDATED ON THE PATIENT, SHE ORDERED TO HOLD ALL MEDS THAT WOULD AFFECT B/P AND IF THE B/P DID REBOUND TO GIVE THE LOPRESSOR THAT [place] ORDERED 2300 PT REASSESSMENT COMPLETED AT THIS TIME, NO CHANGES NOTED FROM PREVIOUS EXAM, VSS WILL MONITOR FOR CHANGES
--- NOTE | 2019-12-02 01:00 | NUR ---
PT REMAINS ON VENT SUPPORT UNRESPONSIVE WITHOUT SEDATION, VSS WILL MONITOR FOR CHANGES
--- NOTE | 2019-12-02 03:00 | NUR ---
PT REASSESSMENT COMPLETED AT THIS TIME, NO CHANGES NOTED FROM PREVIOUS XEAM, WILL MONITOR FOR CHANGES
--- NOTE | 2019-12-02 04:00 | NUR ---
PT WERE REMOVED AT THIS TIME, PT NOT MOVING ARMS OR LEGS TO PAINFUL STIMULATION AND FLACCID, WILL MONITOR FOR ADDTIONAL NEEDS FOR RESTRAINTS
[2019-12-02 05:20] LABS: BASOPHILS 0.2 % (0-2); EOSINOPHILS 0.1 % (0-7); IMMATURE GRANULOCYTES 5.2 % (0-5); LYMPHOCYTES 11.3 % (15-50); MCH 29.4 pg (26.0-34.0); MCV 94.8 fL (80.0-100.0); MEAN PLATELET VOLUME 10.6 fL (7.4-10.4); NEUTROPHILS 76.2 % (40-80); RDW 17.4 % (11.5-14.5); WBC 17.1 10x3/uL (4.8-10.8)
--- NOTE | 2019-12-02 05:30 | NUR ---
WHILE GIVING PATIENT HIS CHG BATH, LARGE BLACK STOOL NOTED, CHG BATH COMPLETED WITH COMPLETE LINEN CHANGE
[2019-12-02 05:37] LABS: RBC 2.11 10x6/uL (4.20-6.10)
[2019-12-02 05:38] LABS: HEMOGLOBIN 6.2 g/dL (13.5-17.5); PLATELET COUNT 90 10x3/uL (130-400)
[2019-12-02 05:49] LABS: ANION GAP 17.1 mmol/L (8-16); CALCIUM 8.4 mg/dL (8.5-10.1); CARBON DIOXIDE 27.2 mmol/L (21.0-32.0); PHOSPHOROUS 5.4 mg/dL (2.5-4.9); POTASSIUM - SERUM 4.3 mmol/L (3.5-5.1); VANCOMYCIN - RANDOM 19.4 ug/mL (10.0-20.0)
--- NOTE | 2019-12-02 06:21 | NUR ---
DR NELSON CALLED AND NOTIFIED OF CRITICAL LABS, SHE ADVISED THAT SHE WAS PUTTING IN ORDERS
--- NOTE | 2019-12-02 07:49 | NUR ---
INTUBATED, NO SEDATION. PT DOES NOT FOLLOW COMMAND. PT HAS NOT MOVED ARMS. RESTRAINTS OFF. TF AT GOAL. BLOODY SPUTUM SUCTIONED FROM ETT, PT TURNED, REPOSITIONED FOR COMFORT.
--- NOTE | 2019-12-02 08:35 | NUR ---
temp 96.0 orally and ax. BEAR HUGGAR APPLIED TO WARM. PRBC'S TRANSFUSION BEGAN.
--- NOTE | 2019-12-02 08:52 | NUR ---
CONSULT CALLED TO DR RAMIREZ.
--- NOTE | 2019-12-02 09:47 | NUR ---
DECREASED FIO2 TO 40% PER DR QUIGLEY
--- NOTE | 2019-12-02 10:23 | NUR ---
SPOKE TO DR JUDY FARNSWORTH: CVL BEING TAKEN OUT. HE STATES THAT HE WILL DO IT LATER TODAY.
--- NOTE | 2019-12-02 10:26 | NUR ---
DR QUIGLEY HERE.
--- NOTE | 2019-12-02 16:41 | NUR ---
RESP RATE UP, 27BPM AND HR 110. VERSED GIVEN.
--- NOTE | 2019-12-02 17:00 | NUR ---
1800 MEDICATIONS GIVEN VIA EMAR. NO ACUTE S/S OF DISTRESS NOTED AT THIS TIME. VSS. PT RESTING IN BED WITH EYES CLOSED. WILL CONT TO MONITOR.
[2019-12-02 17:15] LABS: INR 1.64 (0.85-1.17); PROTIME 19.3 SECONDS (11.6-15.0)
[2019-12-02 17:16] LABS: APTT 49.3 SECONDS (22.8-39.4)
[2019-12-02 17:21] LABS: ALBUMIN 4.9 g/dL (3.4-5.0); BILIRUBIN - DIRECT 1.03 mg/dL (0.00-0.30); BILIRUBIN - INDIRECT 1.13 mg/dL (0.00-1.00); BILIRUBIN - TOTAL 2.16 mg/dL (0.2-1.3); PROTEIN - SERUM 6.4 g/dL (6.4-8.2)
[2019-12-03] VITALS (24 sets, daily range): BP systolic 89–145; BP diastolic 41–71
--- NOTE | 2019-12-03 01:06 | NUR ---
1900 PT AQSSESSMENT COMPLETED AT THIS TIME, NO CHANGES NOTED FROM NURSE REPORT, PT ON VENT SUPPORT WITOUT SEDATION, PT IS NOT RESPONSIVE TO STIMULATION, VSS, WILL MONTIOR FOR CHANGES 2100 PT TEMP RECHECKED AT THIS TIME AND NOTED TO BE DECREASED FROM PREVIOUS, VSS WILL MONITOR FOR CHANGES 2300 PT REASSESSMENT COMPLETED AT THIS TIME TEMP WAS NOTED TO 101.3 AND TYLENOL WAS GIVEN PER OGT, NO OTHER CHANGES NOTED, WILL MONITOR FOR TEMP IMPROVEMENT AND CHANGES IN COND.
--- NOTE | 2019-12-03 02:04 | NUR ---
PROVIDED COMPLETE BED BATH WITH ASSISTANCE. LARGE BLACK TARRY STOOL NOTED. CHANGED MEPLIEX DRESSING. OPEN PRESSURE NOTED ON COCCYX. CLEANSED AND APPLIED MEPLEX DRESSING. PROVIDED ORAL CARE.
--- NOTE | 2019-12-03 03:00 | NUR ---
PT REASSESSMENT COMPLETED AT THIS TIME, NO CHANGES NOTED FROM PREVIOUS EXAM, WILL MONITOR FOR CHANGES
--- NOTE | 2019-12-03 05:00 | NUR ---
LAB DRAWN AT THIS TIME, AND PT WAS REPOSITIONED, WITH ORAL CARE
[2019-12-03 05:56] LABS: ANION GAP 19.2 mmol/L (8-16); CARBON DIOXIDE 24.3 mmol/L (21.0-32.0); PHOSPHOROUS 5.4 mg/dL (2.5-4.9)
[2019-12-03 05:57] LABS: CREATININE - SERUM 4.5 mg/dL (0.6-1.3); POTASSIUM - SERUM 5.5 mmol/L (3.5-5.1)
[2019-12-03 06:09] LABS: HEMATOCRIT 19.4 % (42.0-54.0); HEMOGLOBIN 6.1 g/dL (13.5-17.5); MCHC 31.4 g/dL (31.0-37.0); MCV 95.6 fL (80.0-100.0); MEAN PLATELET VOLUME 11.4 fL (7.4-10.4); PLATELET COUNT 112 10x3/uL (130-400); RBC 2.03 10x6/uL (4.20-6.10); RDW 17.9 % (11.5-14.5); WBC 22.7 10x3/uL (4.8-10.8)
[2019-12-03 07:18] LABS: APTT 114.1 SECONDS (22.8-39.4); INR 13.22 (0.85-1.17)
[2019-12-03 07:19] LABS: PROTIME 95.8 SECONDS (11.6-15.0)
--- NOTE | 2019-12-03 08:34 | NUR ---
Nutrition follow-up: Intubated OGT with Pulmocare @ goal rate of 40 ml/hr Labs reviewed Pt now DNR +BM, black, tarry; pt anemic BUN/Cr high; K, PO4 high Wt: 205# If medically feasible, recommend changing TF formula to Nepro @ 40 ml/hr 2/2 poor renal function. RDN following.
[2019-12-03 08:52] LABS: APTT 113.3 SECONDS (22.8-39.4)
[2019-12-03 08:53] LABS: INR 14.84 (0.85-1.17); PROTIME 104.7 SECONDS (11.6-15.0)
[2019-12-03 09:25] LABS: ANISOCYTOSIS 1+; LYMPHOCYTES 11 % (15-50); MONOCYTES 11 % (2-11); NEUTROPHILS 74 % (40-80); PLATELET ESTIMATE DECREASED; POLYCHROMASIA OCC; SMUDGE CELLS OCC
--- NOTE | 2019-12-03 12:07 | NUR ---
Pt has deep tissue injuries to bilateral heels. Right heel 3cm x 4cm purple intact blister. Left medial heel 2cm x 2cm purple intact blister and left posterior heel 7cm x 4cm intact/purple blister. Recommend: Keep heels floated off mattress and/or pillows. May apply heel protectors but it will still be necessary to keep heels floated so no pressure is applied to areas. Wound care will continue monitoring.
[2019-12-03 13:08] LABS: ANCA - ANTIMYELOPEROXIDASE <9.0 U/mL (0.0-9.0); ANCA - ANTIPROTEINASE 3 <3.5 U/mL (0.0-3.5); ANCA - ATYPICAL <1:20 titer (Neg:<1:20); ANCA - CYTOPLASMIC <1:20 titer (Neg:<1:20); ANCA - PERINUCLEAR <1:20 titer (Neg:<1:20)
[2019-12-03 14:10] LABS: APTT 94.6 SECONDS (22.8-39.4)
[2019-12-03 14:14] LABS: INR 11.22 (0.85-1.17)
[2019-12-03 14:15] LABS: PROTIME 84.4 SECONDS (11.6-15.0)
[2019-12-03 18:17] LABS: RBC 2.38 10x6/uL (4.20-6.10); WBC 21.3 10x3/uL (4.8-10.8)
[2019-12-03 18:18] LABS: BASOPHILS 0.5 % (0-2); EOSINOPHILS 0 % (0-7); HEMATOCRIT 21.6 % (42.0-54.0); HEMOGLOBIN 6.9 g/dL (13.5-17.5); IMMATURE GRANULOCYTES 4.7 % (0-5); LYMPHOCYTES 15.6 % (15-50); MCHC 31.9 g/dL (31.0-37.0); MCV 90.8 fL (80.0-100.0); MEAN PLATELET VOLUME 10.1 fL (7.4-10.4); MONOCYTES 3.9 % (2-11); NEUTROPHILS 75.3 % (40-80); PLATELET COUNT 79 10x3/uL (130-400); RDW 18.3 % (11.5-14.5)
--- NOTE | 2019-12-03 19:00 | NUR ---
BEDSIDE REPORT RECIEVED. PROVIDED INCONTINENT CARE OF LARGE AMOUNTS OF MELENA STOOL. ASSESSMENT COMPLETED. PROVIDED ORAL CARE. REPOSITIONED.
[2019-12-03 19:09] LABS: PLATELET ESTIMATE DECREASED
[2019-12-03 20:03] LABS: APTT 96.6 SECONDS (22.8-39.4)
[2019-12-03 20:06] LABS: INR 12.15 (0.85-1.17); PROTIME 89.8 SECONDS (11.6-15.0)
--- NOTE | 2019-12-03 21:00 | NUR ---
DIALYSIS IN PROGRESS. DR STEEN AT BEDSIDE. UPDATED CONDITION. NO NEW ORDERS AT THIS TIME.
--- NOTE | 2019-12-03 23:00 | NUR ---
HEAD TO TOE ASSESSMENT COMPLETED. PROVIDED INCONTINENT CARE FOR MELENA STOOL. REPOSITIONED FOR COMFORT.
[2019-12-04] VITALS (21 sets, daily range): BP systolic 91–157; BP diastolic 52–83
--- NOTE | 2019-12-04 01:00 | NUR ---
PROVIDED INCONTINENT CARE FOR LARGE AMOUNTS OF MELENA STOOLS. REPOSITIONED. AND PROVIDED ORAL CARE. MODERATE AMOUNTS OF THICK BROWN BLLODY SPUTUM WHILE COUCHING NOTED.
--- NOTE | 2019-12-04 03:00 | NUR ---
REPOSITIONED FOR COMFORT. PROVIDED ORAL CARE.
[2019-12-04 04:22] LABS: APTT 79.9 SECONDS (22.8-39.4)
[2019-12-04 04:25] LABS: BASOPHILS 1.3 % (0-2); EOSINOPHILS 0.1 % (0-7); HEMOGLOBIN 9.8 g/dL (13.5-17.5); IMMATURE GRANULOCYTES 5.7 % (0-5); MCH 29.8 pg (26.0-34.0); MCHC 32.7 g/dL (31.0-37.0); MCV 91.2 fL (80.0-100.0); MONOCYTES 5.7 % (2-11); NEUTROPHILS 81.2 % (40-80); PLATELET COUNT 82 10x3/uL (130-400); RBC 3.29 10x6/uL (4.20-6.10); RDW 16.7 % (11.5-14.5); WBC 21.2 10x3/uL (4.8-10.8)
[2019-12-04 04:26] LABS: ANION GAP 14.5 mmol/L (8-16); CALCIUM 8.1 mg/dL (8.5-10.1); CARBON DIOXIDE 28.7 mmol/L (21.0-32.0); PHOSPHOROUS 4.7 mg/dL (2.5-4.9)
[2019-12-04 04:27] LABS: INR 7.76 (0.85-1.17); PROTIME 63.6 SECONDS (11.6-15.0)
[2019-12-04 04:28] LABS: CREATININE - SERUM 2.5 mg/dL (0.6-1.3); POTASSIUM - SERUM 4.2 mmol/L (3.5-5.1)
--- NOTE | 2019-12-04 05:30 | NUR ---
PROVIDED COMPLETE BEDBATH AND PROVIDED INCONTINENT CARE FOR LARGE AMOUNTS OF MELENA STOOLS. PATIENT WITHDRAWING FROM PAIN. REPOSITIONED ONTO RT SIDE. PROVIDED ORAL CARE.
--- NOTE | 2019-12-04 07:14 | NUR ---
REPORT RECEIVED. ASSESSMENT COMPLETE PER FLOW SHEET. VSS. PT RESTING COMFORTABLY WILL CONTINUE TO MONITOR
[2019-12-04 09:08] LABS: FUNGUS CULTURE RESULT 1 Candida tropicalis (()); FUNGUS MYCOLOGY CULTURE Preliminary report (())
[2019-12-04 09:24] LABS: APTT 85.4 SECONDS (22.8-39.4)
[2019-12-04 09:26] LABS: PROTIME 63.6 SECONDS (11.6-15.0)
[2019-12-04 09:27] LABS: INR 7.75 (0.85-1.17)
--- NOTE | 2019-12-04 11:34 | NUR ---
DR. HOPKINS AT BEDSIDE, VENT CHANGES MADE
--- NOTE | 2019-12-04 15:07 | NUR ---
REASSESSMENT COMPLETE PER FLOW SHEET. VSS. PT RESTING COMFORTABLY WILL CONTINUE TO MONITOR
--- NOTE | 2019-12-04 19:00 | NUR ---
REPORT RECEIVED FROM OFF GOING NURSE. INITIAL ASSESSMENT COMPLETED, SEE FLOWSHEET FOR DETAILS. PT WAS INCONTINENT OF A LARGE BLOODY STOOL, PT CHANGED AND CLEANED. REPOSITIONED FOR COMFORT. ORAL CARE PERFORMED. WHEN TURNING PT IT WAS NOTED THAT ONE OF THE BLISTERS ON PT'S LEFT HEEL WAS NO LONGER INTACT. HEELS ARE ELEVATED OFF THE BED. PT DOES WITHDRAW FROM PAINFUL STIMULI BUT DOES NOT FOLLOW COMMANDS. NO S/S OF DISTRESS NOTED AT THIS TIME. WILL CONTINUE TO MONITOR.
--- NOTE | 2019-12-04 21:00 | NUR ---
PT REPOSITIONED FOR COMFORT. ORAL CARE PERFORMED. NO S/S OF DISTRESS AT THIS TIME. WILL CONTINUE TO MONITOR.
--- NOTE | 2019-12-04 23:00 | NUR ---
REASSESSMENT COMPLETED, SEE FLOWSHEET FOR DETAILS. PT REPOSITIONED FOR COMFORT. ORAL CARE PERFORMED. NO S/S OF DISTRESS WILL CONTINUE TO MONITOR.
[2019-12-05] VITALS (24 sets, daily range): BP systolic 99–164; BP diastolic 55–85
--- NOTE | 2019-12-05 01:00 | NUR ---
PT IS LAYING IN BED INTUBATED. REPOSITIONED FOR COMFORT. ORAL CARE PERFORMED. NO S/S OF DISTRESS. WILL CONTINUE TO MONITOR.
--- NOTE | 2019-12-05 03:00 | NUR ---
REASSESSMENT COMPLETED, SEE FLOWSHEET FOR DETAILS. REPOSITIONED FOR COMFORT. ORAL CARE PERFORMED. NO S/S OF DISTRESS. WILL CONTINUE TO MONITOR.
[2019-12-05 04:38] LABS: BASOPHILS 0.4 % (0-2); EOSINOPHILS 0.1 % (0-7); IMMATURE GRANULOCYTES 4.5 % (0-5); LYMPHOCYTES 5.3 % (15-50); MCH 29.6 pg (26.0-34.0); MCHC 32.2 g/dL (31.0-37.0); MCV 91.9 fL (80.0-100.0); MONOCYTES 4.9 % (2-11); NEUTROPHILS 84.8 % (40-80); PLATELET COUNT 86 10x3/uL (130-400); RDW 17.5 % (11.5-14.5); WBC 19.4 10x3/uL (4.8-10.8)
[2019-12-05 04:41] LABS: HEMATOCRIT 23.9 % (42.0-54.0); HEMOGLOBIN 7.7 g/dL (13.5-17.5)
[2019-12-05 04:42] LABS: PLATELET ESTIMATE DECREASED
[2019-12-05 04:45] LABS: ALBUMIN 3.9 g/dL (3.4-5.0); ANION GAP 15.7 mmol/L (8-16); BILIRUBIN - TOTAL 1.77 mg/dL (0.2-1.3); CALCIUM 8.2 mg/dL (8.5-10.1); CARBON DIOXIDE 24.5 mmol/L (21.0-32.0); CREATININE - SERUM 2.4 mg/dL (0.6-1.3); POTASSIUM - SERUM 4.2 mmol/L (3.5-5.1); PROTEIN - SERUM 5.2 g/dL (6.4-8.2); VANCOMYCIN - RANDOM 16.8 ug/mL (10.0-20.0)
[2019-12-05 04:56] LABS: APTT 108.9 SECONDS (22.8-39.4); INR 12.57 (0.85-1.17); PROTIME 92.2 SECONDS (11.6-15.0)
--- NOTE | 2019-12-05 05:00 | NUR ---
REPOSITIONED PT FOR COMFORT. ORAL CARE PERFORMED. NO FURTHER NEEDS NOTED AT THIS TIME. NO S/S OF DISTRESS. WILL CONTINUE TO MONITOR.
--- NOTE | 2019-12-05 07:15 | NUR ---
REPORT RECEIVED. ASSESSMENT COMPLETE PER FLOW SHEET. VSS. PT RESTING COMFORTABLY WILL CONTINUE TO MONITOR
--- NOTE | 2019-12-05 09:38 | NUR ---
DR RAMIREZ AT BEDSIDE. GIVEN UPDATE. NEW ORDERS RECEIVED. ARGATROBAN PARAMETERS CHANGES TO 90-118 PER ORDER. ARG. RESTARTED PER VERBAL ORDER.
[2019-12-05 09:39] LABS: APTT 55.7 SECONDS (22.8-39.4); INR 3.02 (0.85-1.17); PROTIME 30.8 SECONDS (11.6-15.0)
--- NOTE | 2019-12-05 09:58 | NUR ---
Nutrition follow-up: Pt remains intubated, sedated Pulmocare infusing @ 40 ml/hr labs reviewed Pt now on dialysis May need to change TF formula to Nepro @ 40 ml/hr RDN following.
--- NOTE | 2019-12-05 11:00 | NUR ---
REASSESSMENT COMPLETE PER FLOW SHEET. VSS. PT RESTING COMFORTABLY WILL CONTINUE TOMONITOR
[2019-12-05 15:09] LABS: HEPARIN INDUCED PLATELET AB 0.053 OD (0.000-0.400)
[2019-12-06] VITALS (24 sets, daily range): BP systolic 86–158; BP diastolic 51–80
[2019-12-06 06:26] LABS: APTT 25.1 SECONDS (22.8-39.4); INR 1.36 (0.85-1.17); PROTIME 16.7 SECONDS (11.6-15.0)
[2019-12-06 06:29] LABS: MCH 30.1 pg (26.0-34.0); MCHC 32.7 g/dL (31.0-37.0); MCV 92.2 fL (80.0-100.0); MEAN PLATELET VOLUME 11.3 fL (7.4-10.4); PLATELET COUNT 81 10x3/uL (130-400); RDW 17.2 % (11.5-14.5)
[2019-12-06 06:30] LABS: HEMATOCRIT 29.7 % (42.0-54.0); HEMOGLOBIN 9.7 g/dL (13.5-17.5); RBC 3.22 10x6/uL (4.20-6.10)
[2019-12-06 06:31] LABS: ALBUMIN 3.8 g/dL (3.4-5.0); ANION GAP 14.4 mmol/L (8-16); BILIRUBIN - TOTAL 1.82 mg/dL (0.2-1.3); CALCIUM 8.2 mg/dL (8.5-10.1); CARBON DIOXIDE 24.4 mmol/L (21.0-32.0); CREATININE - SERUM 2.4 mg/dL (0.6-1.3); POTASSIUM - SERUM 4.8 mmol/L (3.5-5.1); PROTEIN - SERUM 5.3 g/dL (6.4-8.2); VANCOMYCIN - RANDOM 20.2 ug/mL (10.0-20.0)
--- NOTE | 2019-12-06 12:27 | NUR ---
0700 BEDSIDE REPORT RECEIVED FROM DANITA RN, ASSESSMENT COMPLETE PLACED PINK HEEL PROTECTORS ON PATIENT RIGHT HEEL WITH TWO PLACES PRESURE ULCER STAGE 1
--- NOTE | 2019-12-06 12:29 | NUR ---
0900 EEG STAFF PRESENT PREPARING FOR PROCEEDURE
--- NOTE | 2019-12-06 12:30 | NUR ---
1212 EMERGENCY CONSENT FOR BRONCHOSDOPY PRT DR HOPKINS. NUMEROUS MUCUS PLUGS LYNDSAY;FROYLAN PER
--- NOTE | 2019-12-06 12:31 | NUR ---
1055 BEDSIDE DIALYSIS STARTED PER AGUSTIN STAFF
--- NOTE | 2019-12-06 13:30 | NUR ---
1330 REPOSITIONED FOR U/S DOPPLER STUDY STAFF
--- NOTE | 2019-12-06 15:00 | NUR ---
1500 NO INDICATION OF PAIN ORAL AND FACIAL CARE PROVIDE REPOSITIONED WITH PILLOW SUPPORT
[2019-12-06 15:19] LABS: ANISOCYTOSIS 1+; LYMPHOCYTES 9 % (15-50); MONOCYTES 2 % (2-11); NEUTROPHILS 85 % (40-80); PLATELET ESTIMATE DECREASED
--- NOTE | 2019-12-06 17:00 | NUR ---
1700 DR STEEN PRESENT WITH BEDSIDE ASSESSMENT
--- NOTE | 2019-12-06 19:00 | NUR ---
HEAD TO TOE ASSESSMENT COMPLETED. CHART CHECKED. CALL PHARMACY ABOUT VANC TROUGH. WILL HOLD DOSE PER [facility]I PHARM D. PATIENT ON IV PROTONIX AND HAS SCHEDULED PROTONIX BID. PROTONIX BID DOSE CX. REPOSITIONED, AND PROVIDED ORAL CARE PER ORDER.
--- NOTE | 2019-12-06 21:00 | NUR ---
REPOSITIONED FOR COMFORT. PROVIDED ORAL CARE.
--- NOTE | 2019-12-06 23:00 | NUR ---
HEAD TO TOE ASSESSMENT COMPELTED. REPOSITIONED. NO CHANGES SINCE LAST ASSESSMENT. PROVIDED ORAL CARE.
[2019-12-07] VITALS (24 sets, daily range): BP systolic 85–138; BP diastolic 51–73
--- NOTE | 2019-12-07 01:00 | NUR ---
REPOSITIONED PER COMFORT. PT AWAKE. OPENS EYES PER REQUEST. PT SQUEEZED RT HAND PER REQUEST.
--- NOTE | 2019-12-07 03:00 | NUR ---
HEAD TO TOE ASSESSMENT COMPLETE. REPOSITIONED FOR COMFORT. PROVIDED ORAL CARE.
--- NOTE | 2019-12-07 05:00 | NUR ---
PROVIDED SCG BATH. REPOSITIONED FOR COMFORT.PROVIDED ORAL CARE
[2019-12-07 07:50] LABS: BASOPHILS 0.1 % (0-2); EOSINOPHILS 1.1 % (0-7); HEMATOCRIT 31.9 % (42.0-54.0); HEMOGLOBIN 10.1 g/dL (13.5-17.5); IMMATURE GRANULOCYTES 2.1 % (0-5); LYMPHOCYTES 6.4 % (15-50); MCH 29.9 pg (26.0-34.0); MCHC 31.7 g/dL (31.0-37.0); MEAN PLATELET VOLUME 11.1 fL (7.4-10.4); NEUTROPHILS 86.3 % (40-80); PLATELET COUNT 65 10x3/uL (130-400); RBC 3.38 10x6/uL (4.20-6.10); WBC 15.1 10x3/uL (4.8-10.8)
[2019-12-07 08:06] LABS: APTT 27.2 SECONDS (22.8-39.4); INR 1.19 (0.85-1.17); PROTIME 15.1 SECONDS (11.6-15.0)
[2019-12-07 08:12] LABS: ALBUMIN 3.5 g/dL (3.4-5.0); ANION GAP 17.7 mmol/L (8-16); BILIRUBIN - TOTAL 1.93 mg/dL (0.2-1.3); CALCIUM 8.4 mg/dL (8.5-10.1); CARBON DIOXIDE 21.6 mmol/L (21.0-32.0); CREATININE - SERUM 2.4 mg/dL (0.6-1.3); POTASSIUM - SERUM 4.3 mmol/L (3.5-5.1); PROTEIN - SERUM 5.3 g/dL (6.4-8.2)
[2019-12-07 08:39] LABS: MCV 94.4 fL (80.0-100.0)
--- NOTE | 2019-12-07 09:29 | NUR ---
CPAP 05/26 @920
--- NOTE | 2019-12-07 09:36 | NUR ---
0700 BEDSIDE REPORT RECEIVED FROM APURVA MELANGEUR OPERATOR COMPLETE ORAL AND FACIAL CARE PROVIDED CBS 147 OPENS EYES TO TOUCH AND VOICE
--- NOTE | 2019-12-07 09:38 | NUR ---
0900 REPOSITIONED TO LEFT SIDE USING PILLOW SUPPORT
--- NOTE | 2019-12-07 12:40 | NUR ---
Nutrition Follow-up: Remains intubated. Tolerating TF. HD yesterday. Diet: Pulmocare @ 40 mL/hr Wt: 208.3# (12/06); 217.1# (12/04); 211.6# (12/03); 201.7# (12/01) Last BM: 12/05 per chart Labs noted: K+ 4.3, Glu 187, Ca 8.4, Alb 3.5 Meds noted: Humalog, Lantus, Protonix -MD may consider changing TF to Nepro @ 40; provides additional calories/protein and appropriate for HD. -Monitor wt. -RD following.
--- NOTE | 2019-12-07 19:40 | NUR ---
1200 PATIENT OPENS EYES TO VOICE HE WILL SQUEEZE HIS HANDS REQUESTED
--- NOTE | 2019-12-07 19:41 | NUR ---
[address] LESTER HAND ON REQUEST
--- NOTE | 2019-12-07 20:14 | NUR ---
1600 VENT SETTINGS REMAIN AT AC-16 FIO2-40% TV-500 PEEP-7
--- NOTE | 2019-12-07 20:15 | NUR ---
1800 BEDSIDE REPORT GIVEN TO AMBRE CHARGE RR
--- NOTE | 2019-12-07 21:19 | NUR ---
PT SON CALLED, PASSWORD PROVIDED, UPDATE GIVEN AND ALL QUESTIONS ANSWERED,
--- NOTE | 2019-12-07 23:40 | NUR ---
COMPLETE CHG BATH AND LINEN CHANGE DONE, PT ABLE TO FOLLOW COMMANDS, REPOSITIONED WITH WEDGES, TOLERATED WITHOUT DIFFICULTY. CONT TO MONITOR.
[2019-12-08] VITALS (24 sets, daily range): BP systolic 84–148; BP diastolic 40–81
--- NOTE | 2019-12-08 01:10 | NUR ---
TAWANA BENITEZWOOD FINISHER CALLED REGARDING PULMOCARE FOR TF. ALL OTHER UNITS CALLED AND NONE IS AVAILABLE.
[2019-12-08 04:05] LABS: BASOPHILS 0.2 % (0-2); EOSINOPHILS 1.5 % (0-7); HEMATOCRIT 30.2 % (42.0-54.0); HEMOGLOBIN 9.7 g/dL (13.5-17.5); IMMATURE GRANULOCYTES 1.5 % (0-5); LYMPHOCYTES 4.6 % (15-50); MCH 30.6 pg (26.0-34.0); MCHC 32.1 g/dL (31.0-37.0); MCV 95.3 fL (80.0-100.0); MEAN PLATELET VOLUME 11.5 fL (7.4-10.4); MONOCYTES 2.7 % (2-11); NEUTROPHILS 89.5 % (40-80); PLATELET COUNT 62 10x3/uL (130-400); RBC 3.17 10x6/uL (4.20-6.10); RDW 18.7 % (11.5-14.5); WBC 11.8 10x3/uL (4.8-10.8)
[2019-12-08 04:12] LABS: PLATELET ESTIMATE DECREASED
[2019-12-08 04:13] LABS: APTT 31.1 SECONDS (22.8-39.4); INR 1.19 (0.85-1.17); PROTIME 15.1 SECONDS (11.6-15.0)
[2019-12-08 04:15] LABS: ALBUMIN 3.1 g/dL (3.4-5.0); ANION GAP 17.3 mmol/L (8-16); BILIRUBIN - TOTAL 1.76 mg/dL (0.2-1.3); CARBON DIOXIDE 21.7 mmol/L (21.0-32.0); MAGNESIUM - SERUM 2.5 mg/dL (1.8-2.4); PHOSPHOROUS 5.6 mg/dL (2.5-4.9); PROTEIN - SERUM 5.1 g/dL (6.4-8.2)
[2019-12-08 04:21] LABS: CREATININE - SERUM 3.4 mg/dL (0.6-1.3)
--- NOTE | 2019-12-08 04:52 | NUR ---
RADIOLOGY AT BEDSIDE TO DO AM CXR, PT TOLERATED WITHOUT DIFFICULTY, VSS.
--- NOTE | 2019-12-08 08:51 | NUR ---
LYING IN BED ON VENT AT THIS TIME. PT OPENS EYES SPONTANEOUSLY, DOES NOT FOLLOW COMMANDS. DOES PULL TO DISCOMFORT. PT TURNED Q2H. ORAL CARE PROVIDED Q2H. WILL CONTINUE PLAN OF CARE.
[2019-12-08 09:08] LABS: AMPHOTERICIN B MIC 1.0 ug/mL (())
[2019-12-08 10:08] LABS: AMPHOTERICIN B MIC 0.5 ug/mL (())
--- NOTE | 2019-12-08 10:51 | NUR ---
DR JAMES ALFORD FOR MEDICATION ORDER CLARIFICATION.
--- NOTE | 2019-12-08 10:57 | NUR ---
PER DR RAMIREZ, DO NOT ADMIN LOVENOX. SHE STATED SHE WILL BE BY IN A LITTLE WHILE TO SEE PT AND PLACE ORDERS.
--- NOTE | 2019-12-08 11:49 | NUR ---
PER DR RAMIREZ, AFTER REVIEWING PTS LABS, OKAY TO GIVE LOVENOX.
--- NOTE | 2019-12-08 12:34 | NUR ---
LYING IN BED ON VENT AT THIS TIME. NO ACUTE DISTRESS NOTED. VSS. RECIEVING DILAYSIS AT THIS TIME, TOLERATING WELL. WILL CONTINUE PLAN OF CARE.
--- NOTE | 2019-12-08 12:43 | NUR ---
WILL ADMIN SCHEDULED ANTIBIOTICS AFTER DIALYSIS COMPLETE.
--- NOTE | 2019-12-08 14:27 | NUR ---
CHG BATH PROVIDED.
--- NOTE | 2019-12-08 15:27 | NUR ---
PTS HEART RATE TRENDING 55-[address] DENG NOTIFIED OF THIS, HE STATED TO HOLD METOPROLOL AND CARDIZEM FOR NOW.
--- NOTE | 2019-12-08 16:18 | NUR ---
NO ACUTE DISTRESS NOTED. NO CHANGE. VSS. PT TURNED Q2H. ORAL CARE PROVIDED Q2H. NO ACUTE DISTRESS NOTED. WILL CONTINUE PLAN OF CARE.
--- NOTE | 2019-12-08 18:02 | NUR ---
VSS. NO ACUTE DISTRESS NOTED. NO CHANGE. PT TURNED AND ORAL CARE PROVIDED Q2H. WILL CONTINUE PLAN OF CARE.
[2019-12-09] VITALS (24 sets, daily range): BP systolic 115–163; BP diastolic 59–89
--- NOTE | 2019-12-09 06:20 | NUR ---
RT AT BEDSIDE FOR RESP TREATMENT, VSS, CONT TO MONITOR.
[2019-12-09 06:24] LABS: BASOPHILS 0.1 % (0-2); EOSINOPHILS 2.7 % (0-7); HEMATOCRIT 27.8 % (42.0-54.0); HEMOGLOBIN 8.9 g/dL (13.5-17.5); IMMATURE GRANULOCYTES 1.1 % (0-5); MCH 30.2 pg (26.0-34.0); MCV 94.2 fL (80.0-100.0); MEAN PLATELET VOLUME 11.3 fL (7.4-10.4); MONOCYTES 3.8 % (2-11); NEUTROPHILS 88.3 % (40-80); PLATELET COUNT 59 10x3/uL (130-400); RBC 2.95 10x6/uL (4.20-6.10); RDW 18.7 % (11.5-14.5); WBC 8.9 10x3/uL (4.8-10.8)
[2019-12-09 06:40] LABS: ALBUMIN 2.6 g/dL (3.4-5.0); ANION GAP 16.9 mmol/L (8-16); BILIRUBIN - TOTAL 1.4 mg/dL (0.2-1.3); CARBON DIOXIDE 23.6 mmol/L (21.0-32.0); CREATININE - SERUM 3.3 mg/dL (0.6-1.3); POTASSIUM - SERUM 4.5 mmol/L (3.5-5.1); PROTEIN - SERUM 4.9 g/dL (6.4-8.2)
[2019-12-09 06:42] LABS: PLATELET ESTIMATE DECREASED
--- NOTE | 2019-12-09 07:00 | NUR ---
RECEIVED BEDSIDE REPORT ON PATIENT AND ASSUMED CARE. PATIENT RESTING QUIETLY ON VENT, NO SEDATION, WILL OPEN EYES TO VOICE BUT NOT FOLLOWING COMMANDS. TRIALYSIS CATH TO LEFT SUBCLAVIAN, 20 GA IV TO RIGHT HAND AND 20 GA IV TO RIGHT FA. BBS - CLEAR AND EQUAL, RR 22, VENT SETTINGS A/C 16, TV - 500, FIO2 - 40% AND PEEP - 7. SPO2 - 99%. CM - AFIB CONTROLLED RATE IN THE 80S. PATIENT TURNED AND REPOSITIONED IN BED. VSS. HEAD TO TOE ASSESSMENT COMPLETED.
--- NOTE | 2019-12-09 08:50 | NUR ---
PATIENT TURNED AND REPOSITIONED IN BED. VSS. MORNING MEDS PER MAR.
[2019-12-09 09:08] LABS: AMPHOTERICIN B MIC 1.0 ug/mL (())
--- NOTE | 2019-12-09 11:09 | NUR ---
REASSESSMENT COMPLETED. VSS. TURNED AND REPOSITIONED IN BED. RESIDUAL TUBE FEEDS 80 ML. FSBS - 181 GIVEN HUMALOG PER OCT.
--- NOTE | 2019-12-09 12:07 | NUR ---
DR. HOPKINS AT ROOM UPDATED AND EXAMINES PATIENT. VSS. TOLERATING CPAP TRIAL.
--- NOTE | 2019-12-09 12:30 | NUR ---
DR. MCNEILL AT ROOM UPDATED AND EXAMINES PATIENT.
--- NOTE | 2019-12-09 12:49 | NUR ---
PATIENT TURNED AND REPOSITIONED IN BED. MEDS PER MAR. VSS.
--- NOTE | 2019-12-09 14:36 | NUR ---
PT GIVEN CHG BATH AND AIR OVERLAY MATRESS PLACED. LINENS CHANGED AND GOWN. TURNED AND REPOSITIONED IN BED. VSS.
--- NOTE | 2019-12-09 15:00 | NUR ---
REASSESSMENT COMPLETED. VSS. TURNED AND REPOSITIONED IN BED. OGT PLACEMENT VERIFIED BY ASCULTATION, RESIDUAL 95 ML.
--- NOTE | 2019-12-09 16:34 | NUR ---
TUBE FEEDING BAG CHANGED. PATIENT TURNED AND REPOSITIONED IN BED. VSSS.
--- NOTE | 2019-12-09 17:07 | NUR ---
PATIENT OGT DISPLACED UNABLE TO REPOSITION IT, REMOVED AND NGT TO RIGHT NARE PLACED. PLACEMENT VERIFIED BY ASCULTATION.
--- NOTE | 2019-12-09 18:32 | NUR ---
PATIENT HIGH PEAKING VENT AND SHAKING HEAD, TALKED TO DR. HOPKINS TO GIVE 1-2 MG OF VERSED Q4HPRN FOR SEDATION.
--- NOTE | 2019-12-09 19:00 | NUR ---
ASSESSMENT COMPLETED. NG TUBE PLACEMENT CHECKED. 188 ML RESIDUAL.
--- NOTE | 2019-12-09 19:00 | NUR ---
ASSESSMENT COMPLETED. VENT CONT AT 40%. OGT PLACEMENT CHECKED, NO RESIDUAL. REPOSITIONED. ORAL CARE PROVIDED.
--- NOTE | 2019-12-09 21:00 | NUR ---
REPOSITIONED, ORAL CARE PROVIDED.
--- NOTE | 2019-12-09 22:30 | NUR ---
PATIENT MOVING AND TRYING TO GET OUT OF RESTRAINTS. TRIED TO REORIENT.
--- NOTE | 2019-12-09 23:00 | NUR ---
RE-ASSESSMENT COMPLETED. NO CHANGES SINCE LAST ASSESSMENT
--- NOTE | 2019-12-09 23:00 | NUR ---
RE-ASSESSMENT COMPLETED. NO CHANGES SINCE LAST ASSESSMENT. PATIENT WAKING UP FROM SEDATION AND IMMEDIATELY TRYING TO SIT UP AND GET OUT OF RESTRAINTS
[2019-12-10] VITALS (24 sets, daily range): BP systolic 145–173; BP diastolic 57–103
--- NOTE | 2019-12-10 01:00 | NUR ---
PATIENT NOT FOLLOWING COMMANDS. PATIENT WILL LOOK AT NURSE WHEN SHE TALKING.
--- NOTE | 2019-12-10 03:00 | NUR ---
RE-ASSESSMENT COMPLETED. NO CHANGES SINCE LAST ASSESSMENT
--- NOTE | 2019-12-10 05:00 | NUR ---
REPOSITIONED AND ORAL CARE PROVIDED. LARGE BM
[2019-12-10 05:59] LABS: BASOPHILS 0.1 % (0-2); EOSINOPHILS 2.2 % (0-7); HEMATOCRIT 30.1 % (42.0-54.0); HEMOGLOBIN 9.5 g/dL (13.5-17.5); IMMATURE GRANULOCYTES 0.7 % (0-5); LYMPHOCYTES 4.7 % (15-50); MCH 29.7 pg (26.0-34.0); MCHC 31.6 g/dL (31.0-37.0); MCV 94.1 fL (80.0-100.0); MEAN PLATELET VOLUME 11.5 fL (7.4-10.4); MONOCYTES 3.3 % (2-11); RDW 18.5 % (11.5-14.5); WBC 8.8 10x3/uL (4.8-10.8)
[2019-12-10 06:32] LABS: PLATELET COUNT 71 10x3/uL (130-400)
[2019-12-10 06:34] LABS: ALBUMIN 2.6 g/dL (3.4-5.0); ANION GAP 16.9 mmol/L (8-16); BILIRUBIN - TOTAL 1.25 mg/dL (0.2-1.3); CALCIUM 8.6 mg/dL (8.5-10.1); CARBON DIOXIDE 22.2 mmol/L (21.0-32.0); POTASSIUM - SERUM 5.1 mmol/L (3.5-5.1); PROTEIN - SERUM 5.3 g/dL (6.4-8.2)
[2019-12-10 06:38] LABS: CREATININE - SERUM 4.2 mg/dL (0.6-1.3)
--- NOTE | 2019-12-10 07:00 | NUR ---
0700 BEDSIDE REPORT FROM BRITTNI COREASJOB FOREMAN COMPLETE
[2019-12-10 07:26] LABS: PLATELET ESTIMATE DECREASED
--- NOTE | 2019-12-10 09:00 | NUR ---
0900 VENT SETTING ON CPAP TRIAL TOLERATING WELL
--- NOTE | 2019-12-10 10:29 | NUR ---
Nutrition follow-up: Diet: Intubated; awake but not following commands Labs reviewed Pulmocare @ 40 ml/hr goal rate Wt: 233# +BM RDN following.
--- NOTE | 2019-12-10 12:42 | NUR ---
1242 EXTUBATED BY LILLIANA RT WITHOUT COMPLICATIONS PLACED ON 4L/NC
--- NOTE | 2019-12-10 14:30 | NUR ---
1430 REFUSES TO ALLOW NURSE TO SUCTION HIS MOUTH
--- NOTE | 2019-12-10 15:00 | NUR ---
1500 UPDATED FAMILY ON PROGRESS
--- NOTE | 2019-12-10 16:10 | NUR ---
[address] IN ROOM FOR BEDSIDE SWALLOW STUDY PATIENT REFUSED TO COOPERATED STATED HE WILL TRY AGAIN TOMORROW
--- NOTE | 2019-12-10 18:00 | NUR ---
1800 RESTING QUIETLY PATIENT GROWLED AT RN WHILE ATTEMPTING TO REPOSITION PATIENT NGT AND PULMOCARE AT 40ML/HR CONTINUES. 170 RESIDUAL NOTED
--- NOTE | 2019-12-10 19:00 | NUR ---
PATIENT RESTING IN BED WITH EYES CLOSED AND NO S/S OF DISTRESS. BED IN LOWEST POSITION AND CALL LIGHT WITHIN REACH. WILL CONTINUE TO MONITOR.
--- NOTE | 2019-12-10 21:00 | NUR ---
PATIENT RESTING IN BED WITH NO S/S OF DISTRESS. TUBE FEEDING @ 40ML/HR, RESIDUAL 150. BED IN LOWEST POSITION AND CALL LIGHT WITHIN REACH. WILL CONTINUE TO MONITOR.
--- NOTE | 2019-12-10 23:12 | NUR ---
REPORT RECIEVED AND ROUNDING COMPLETE. PATIENT LAYING IN BED EYES CLOSED, BREATHING EVEN AND UNLABORED, SHOWS NO S/SX OF DISTRESS. WEARING NASAL CANNULA WITH O2 AT 2L. R HAND SL AND RIGHT FOREARM PIV IS PATENT AND RUNNING FLUIDS AT THIS TIME. FEEDING RUNNING IN RIGHT NARE, FEEDING TO BE STOPPED AT 0000 FOR PROCEDURE. CALL LIGHT WITHIN REACH AND BED IN LOWEST LOCKED POSITION.
[2019-12-11] VITALS (29 sets, daily range): BP systolic 95–164; BP diastolic 56–103
--- NOTE | 2019-12-11 00:10 | NUR ---
STOPPED PATIENT'S FEEDINGS. NO DISTRESS NOTED AT THIS TIME. CALL LIGHT WITHIN REACH AND BED IN LOWEST LOCKED POSITION.
--- NOTE | 2019-12-11 02:15 | NUR ---
STRAIGHTENED PATIENT IN BED AND ROLLED TO LEFT SIDE, NO DISTRESS NOTED, EYES CLOSED BREATHING SHALLOW AND UNLABORED.
--- NOTE | 2019-12-11 04:29 | NUR ---
TRIED TO GET PATIENT TO TAKE BATH THIS AM BUT HE BECAME EXTREMELY AGGITATED, YELLING AND GRUNTING AND ATTEMPTING TO HIT. CHRISTOPHER HUSSEIN ASSISTED IN TRYING TO BATHE PATIENT BUT HE WAS NOT HAVING ANY OF IT. TRUNED PATIENT ON RIGHT SIDE STRAIGHTENED BED AND LINENS OUT, WASHED HIS FACE. WILL INFORM DAY NURSE.
--- NOTE | 2019-12-11 05:56 | NUR ---
PATIENT LAYING IN BED IN LOW FOWLERS, NO S/SX OF DISTRESS, CALL LIGHT WITHIN REACH AND BED IN LOWEST LOCKED POSITION.
[2019-12-11 07:34] LABS: ANION GAP 22.7 mmol/L (8-16); CREATININE - SERUM 5.2 mg/dL (0.6-1.3); POTASSIUM - SERUM 5.7 mmol/L (3.5-5.1)
[2019-12-11 07:40] LABS: ALBUMIN 2.5 g/dL (3.4-5.0); BILIRUBIN - TOTAL 1.31 mg/dL (0.2-1.3); PROTEIN - SERUM 4.7 g/dL (6.4-8.2)
[2019-12-11 08:24] LABS: BASOPHILS 0 % (0-2); EOSINOPHILS 1.3 % (0-7); HEMATOCRIT 28.3 % (42.0-54.0); HEMOGLOBIN 9.1 g/dL (13.5-17.5); IMMATURE GRANULOCYTES 0.5 % (0-5); LYMPHOCYTES 4.2 % (15-50); MCH 30.1 pg (26.0-34.0); MCHC 32.2 g/dL (31.0-37.0); MCV 93.7 fL (80.0-100.0); MEAN PLATELET VOLUME 11.2 fL (7.4-10.4); MONOCYTES 3.2 % (2-11); NEUTROPHILS 90.8 % (40-80); PLATELET COUNT 68 10x3/uL (130-400); RBC 3.02 10x6/uL (4.20-6.10); RDW 18.4 % (11.5-14.5); WBC 7.6 10x3/uL (4.8-10.8)
--- NOTE | 2019-12-11 08:52 | NUR ---
0700 BEDSIDE REPPORT RECEIVED FROM OUTGOIIN NURSE CALLED PATIENTS SON FOR CONSENT FOR REMOVING TRIALYSIS CATHETER AND REPLACING IT IN THE OR SETTING. ANESTHESIA CONSENT AND BLOOD CONSENTS ALSO SIGNEDORAL AND FACIAL CARE PROVIDE PATIENT GROWLED THE WHOLE TIME.
--- NOTE | 2019-12-11 08:57 | NUR ---
0800 PREOP EKG COMPLETED SHOWING CONTROLLED AFIB AT 83
--- NOTE | 2019-12-11 09:45 | NUR ---
0945 PRE-OP CALLED
--- NOTE | 2019-12-11 11:06 | NUR ---
1040 ANESTHESIA REVIEWING CHART PATIENT FACE SHAVED PER RN PATIENT COOPERATIVE AND RELAXED TUBE FEEDING REMAINS OFF FOR SHCEDULED OR PROCEEDURE
--- NOTE | 2019-12-11 12:24 | NUR ---
1215 OR STAFF TRANSFERRED PT SURGERY
--- NOTE | 2019-12-11 13:31 | NUR ---
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 ORDERED STAT CXR ORDERED FOR LINE PLACEMENT PRIOR TO USE
--- NOTE | 2019-12-11 15:04 | NUR ---
5440 HAILEY , NURSE FROM [facility] SETTING UP THE DIALYSIS MACHINE.
--- NOTE | 2019-12-11 17:53 | NUR ---
1650 DIALYSIS COMPLETE PT SLEEPING WITH NO INDICATION OF PAIN
--- NOTE | 2019-12-11 18:38 | NUR ---
1800 PULMOCARE TUBE FEEDING RESTARTED AT 40ML/HR RESIDUAL 3ML.
--- NOTE | 2019-12-11 19:31 | NUR ---
SUPINE IN BED, BRIEF EYE OPENING UPON VERBAL AND TACTILE STIMULATION. GROANS WHEN LIFTING FOREARM. VS STABLE. DOES NOT FOLLOW COMMANDS. WILL CONTINUE TO MONITOR.
--- NOTE | 2019-12-11 21:00 | NUR ---
SUPINE IN BED, TUBE FEEDING HELD. AUSCULTATED FOR PLACEMENT. VS STABLE. NO S/SX OF DISTRESSED, PT TURNED, WILL CTM.
[2019-12-12] VITALS (14 sets, daily range): BP systolic 103–137; BP diastolic 55–90
--- NOTE | 2019-12-12 | NUR ---
SUPINE IN BED, GRUNTS WHILE BEING TURNED. PADDING UNDER ARMS CHANGED DUE TO SATURATION FROM WEEPING EDEMA. CTM.
[2019-12-12 05:29] LABS: BASOPHILS 0.2 % (0-2); EOSINOPHILS 0.9 % (0-7); HEMATOCRIT 26.6 % (42.0-54.0); HEMOGLOBIN 8.4 g/dL (13.5-17.5); IMMATURE GRANULOCYTES 0.2 % (0-5); LYMPHOCYTES 4.6 % (15-50); MCH 29.6 pg (26.0-34.0); MCHC 31.6 g/dL (31.0-37.0); MCV 93.7 fL (80.0-100.0); MEAN PLATELET VOLUME 10.3 fL (7.4-10.4); MONOCYTES 8.5 % (2-11); NEUTROPHILS 85.6 % (40-80); PLATELET COUNT 75 10x3/uL (130-400); RBC 2.84 10x6/uL (4.20-6.10); RDW 18.5 % (11.5-14.5); WBC 5.7 10x3/uL (4.8-10.8)
[2019-12-12 06:01] LABS: ALBUMIN 2.1 g/dL (3.4-5.0); BILIRUBIN - TOTAL 1.3 mg/dL (0.2-1.3); CALCIUM 8.1 mg/dL (8.5-10.1); PROTEIN - SERUM 5.1 g/dL (6.4-8.2)
[2019-12-12 06:20] LABS: ANION GAP 17.6 mmol/L (8-16); CREATININE - SERUM 3.4 mg/dL (0.6-1.3); POTASSIUM - SERUM 4.6 mmol/L (3.5-5.1)
--- NOTE | 2019-12-12 06:33 | NUR ---
I have reviewed this patient and I concur with the Shift Assessment completed by the Licensed Practical Nurse today this shift.
--- NOTE | 2019-12-12 07:00 | NUR ---
REC'D REPORT AND RESUEMD , AWAKE AND ALERT, NON VERBAL, VAA, O2 VIA NC AT 3L, DOES NOT FOLLOW COMMANDS, ASSESSMENT COMPLETED PER FLOWSHEET, CALL LIGHT IN REACH, WILL CONTINUE WITH POC
--- NOTE | 2019-12-12 08:30 | NUR ---
DR RAMIREZ HERE FOR EVAL, NO NEW ORDERS AT THIS TIME
--- NOTE | 2019-12-12 09:15 | NUR ---
Nutrition follow-up: Pt NPO after self-extubation 12/11 Waiting on swallow eval BIPAP in place Wt: 228# RDN following.
--- NOTE | 2019-12-12 09:22 | NUR ---
Nutrition follow-up: Pulmocare continues @ 40 ml/hr via NGT; waiting for speech eval Labs reviewed Dialysis started RDN following.
--- NOTE | 2019-12-12 10:08 | OP ---
PATIENT NAME: RAYMOND ANGUIANO MEDICAL RECORD: [id number] :37 LOCATION:.[facility] D.2308 ADMISSION DATE:11/20/19 SURGEON: LISANDRO KIM MD DATE OF OPERATION: 12/11/2019 PREOPERATIVE DIAGNOSES: 1. Outdated Trialysis catheter. 2. Acute renal failure requiring hemodialysis. 3. Fungemia. POSTOPERATIVE DIAGNOSES: 1. Outdated Trialysis catheter. 2. Acute renal failure requiring hemodialysis. 3. Fungemia. PROCEDURE: Insertion of right internal jugular Trialysis catheter. SURGEON: Lisandro Kim MD STEAMING CABINET TENDER: None. BLOOD LOSS: Minimal. ANESTHESIA: Local with IV sedation. COMPLICATIONS: None. I wanted this procedure to be performed in the most sterile environment, so I elected to place this in the operating room. 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 OPERATIVE COURSE: The patient was conveyed to the operating room electively on 12/11/2019. IV sedation was induced by the anesthesia staff. The neck was sterilely prepped and draped. I interrogated the right neck with the hand-held ultrasound and I did identify a large compressible right internal jugular vein. The right internal jugular vein was percutaneously accessed in an antegrade fashion. A guidewire passed easily. A small skin emmanuel was accomplished. A vessel dilator was used to dilate a subcutaneous tract. A short Trialysis catheter was inserted to the hub. It was sutured in place times 3. All lumens flushed easily and aspirated dark, nonpulsatile blood. I then went about removal of the left-sided subclavian Trialysis catheter. A pursestring suture of 2-0 Prolene was applied around the skin at the insertion site for the catheter. I removed the catheter and cinched down on the pursestring suture and then tied it. Hemostasis was immediate. Sterile dressings were applied. The patient was then conveyed back to the intensive care unit. TRANSINT:[id number] Voice Confirmation ID: [id number] DOCUMENT ID: [id number] OPERATIVE REPORT [id number] RAYMOND ANGUIANO ROBERT MD at 1006 CC: [id number] DICTATION DATE: 12/11/19 1636 SYRUP MIXER HELPER: 12/11/19 1708 ADM IN [facility] [address] [id number]
--- NOTE | 2019-12-12 10:40 | NUR ---
PHYSICAL THERAPY AT BEDSIDE, LIMITED ROM, UNABLE TO COMPLETE EVAL
--- NOTE | 2019-12-12 10:55 | NUR ---
REPORT GIVEN TO TYSON ON MEDS 2 FOR TRANSFER TO 214
[2019-12-12 11:08] LABS: AMPHOTERICIN B MIC 1.0 ug/mL (())
--- NOTE | 2019-12-12 11:52 | NUR ---
PT WAS DROPPED OFF IN ROOM BY ICU. THIS NURSE WAS UNAWARE THAT PT WAS ON FLOOR ON NOT SURE HOW LONG SINCE THIS NURSE WAS CARING FOR ANOTHER PT. TF WAS ALSO NOT GOING AND TF BAG HAS LESS THAN 25CC OF FEEDING AND MORE WAS NOT BROUGHT WITH PT. PT LETHARGIC AND ON A FIRST STEP OVERLAY. NG TUBE TO RIGHT NARE. WILL RESTART TF ORDERED AT 40ML/HR.
--- NOTE | 2019-12-12 12:32 | NUR ---
PT HAD 205ML RESIDUAL FROM NG TUBE. REPLACED AND GAVE FLORAJEN AND CARDIZEM THROUGH TUBE AND FLUSHED WITH H20. TF BAG CHANGED TIME AND DATED. TF RESTARTED AT 40ML/HR AND 10ML Q4H FLUSH.
--- NOTE | 2019-12-12 14:35 | NUR ---
OT NOTE: PT REQUIRED TOTAL A WITH BUE POSITIONING AND PROM TOLERATED. PT REQUIRED TOTAL A WITH BODY POSITIONING TO DECREASE RISK OF SKIN BREAKDOWN AND RELIEVE PRESSURE SPOTS. PT REQUIRE TOTAL A WITH UB HYGIENE TASKS. [id number] THANK YOU,KAROL MORLEY
--- NOTE | 2019-12-12 20:37 | NUR ---
PT RESIDUAL CHECKED AT THIS TIME. RESIDUAL IS 300 ML. TUBE FEEDING HELD AT THIS TIME PER TUBE FEEDING ORDER.
--- NOTE | 2019-12-13 01:03 | NUR ---
TUBE FEEDING RESTARTED AT THIS TIME. CL IN REACH, BED IN LOWEST POSITION. NO SIGNS OF DISTRESS NOTED.
[2019-12-13 04:00] VITALS: BP 132/65
--- NOTE | 2019-12-13 05:18 | NUR ---
RESIDUAL CHECK AT THIS TIME IS 170ML
[2019-12-13 06:25] LABS: ANION GAP 21.6 mmol/L (8-16); BILIRUBIN - TOTAL 1.29 mg/dL (0.2-1.3); CALCIUM 7.9 mg/dL (8.5-10.1); CARBON DIOXIDE 20.3 mmol/L (21.0-32.0); PROTEIN - SERUM 4.6 g/dL (6.4-8.2)
[2019-12-13 06:40] LABS: CREATININE - SERUM 4.6 mg/dL (0.6-1.3); POTASSIUM - SERUM 5.9 mmol/L (3.5-5.1)
[2019-12-13 08:00] LABS: BASOPHILS 0.2 % (0-2); EOSINOPHILS 1.6 % (0-7); HEMATOCRIT 26.8 % (42.0-54.0); HEMOGLOBIN 8.4 g/dL (13.5-17.5); IMMATURE GRANULOCYTES 0.5 % (0-5); LYMPHOCYTES 10.6 % (15-50); MCH 29.2 pg (26.0-34.0); MCHC 31.3 g/dL (31.0-37.0); MCV 93.1 fL (80.0-100.0); MEAN PLATELET VOLUME 10.7 fL (7.4-10.4); NEUTROPHILS 78.1 % (40-80); PLATELET COUNT 80 10x3/uL (130-400); RBC 2.88 10x6/uL (4.20-6.10); RDW 17.8 % (11.5-14.5); WBC 4.3 10x3/uL (4.8-10.8)
[2019-12-13 08:45] VITALS: BP 154/60
[2019-12-13 11:50] LABS: PLATELET ESTIMATE DECREASED
--- NOTE | 2019-12-13 13:56 | NUR ---
I have reviewed this patient and I concur with the Shift Assessment completed by the Licensed Practical Nurse today this shift.
[2019-12-13 18:16] VITALS: BP 91/64
--- NOTE | 2019-12-13 19:15 | NUR ---
REPORT RECEIVED, WILL CONTINUE POC. PATIENT IS RESTING WITH EYES CLOSED, AWAKES TO DEEP STIMULI BUT NON-VERBAL. NO S/S OF DISTRESS OBSERVED, RR EVEN AND UNLABORED ON 2L NC. NG TUBE TO RIGHT NARE, IN PROPER PLACEMENT. TUBE FEEDING @ 40ML/HR WITH 10ML Q4H FLUSH. PIV TO RT WRIST AND RT FA BOTH SL, ALISEG C/D/I. RT IJ TRIALYSIS, DRSG C/D/I. PATIENT HAS BUE PITTING EDEMA, WEEPING NOTED. CL IN REACH, BED LOCKED AND LOWERED. WILL CTM.
[2019-12-13 20:00] VITALS: BP 129/51
--- NOTE | 2019-12-13 21:35 | NUR ---
RESIDUAL 160CC, PLACED BACK AND ADMINISTERED HS MED, FLUSHED WITH H20. IV PROTONIX ADMINISTERED WELL.
--- NOTE | 2019-12-13 22:15 | NUR ---
RESIDUAL 160CC, PLACED BACK AND ADMINISTERED HS MED, FLUSHED WITH H20. IV PROTONIX ADMINISTERED WELL.
--- NOTE | 2019-12-13 23:40 | NUR ---
TEMP 101.7 ADMINISTERED LIQUID TYLENOL VIA PEG TUBE AND FLUSHED WITH 10ML WATER. WILL REASSESS.
[2019-12-14] VITALS (7 sets, daily range): BP systolic 85–136; BP diastolic 39–61
--- NOTE | 2019-12-14 00:44 | NUR ---
REASSESSED PATIENT TEMP @ 0032 IT WAS 102.3 AXILLARY. PAGED SHAY HAGAN APN. NEW ORDERS RECEIVED. WILL CTM.
--- NOTE | 2019-12-14 01:06 | NUR ---
ADMINISTERED TYLENOL SUPPOSITORY PER ORDERS. WILL REASSESS TEMP IN 45MIN. PATIENT ALSO REPOSITIONED IN BED.
--- NOTE | 2019-12-14 01:21 | NUR ---
ADMINISTERED CARDIZEM VIA NG TUBE FLUSHED WITH 10ML WATER. RESPIRATORY AT BEDSIDE.
--- NOTE | 2019-12-14 02:16 | NUR ---
TEMP 102.6, SPOKE TO SHAY HAGAN APN INSTRUCTIONS RECEIVED. WILL REASSESS IN 1 HOUR.
--- NOTE | 2019-12-14 02:24 | NUR ---
ICE PACKS PLACED UNDERNEATH PATIENTS ARMS, COOL WASH CLOTH ON PATIENTS FOREHEAD. WILL CONTINUE TO MONTIOR TEMP.
--- NOTE | 2019-12-14 02:59 | NUR ---
I have reviewed this patient and I concur with the Shift Assessment completed by the Licensed Practical Nurse today this shift.
--- NOTE | 2019-12-14 03:20 | NUR ---
TEMP 99.3 TEMPORAL, REMOVED 1 ICE PACK AND WILL TAKE AXILLARY MEASUREMENT.
[2019-12-14 04:34] LABS: ALBUMIN 1.8 g/dL (3.4-5.0); ANION GAP 17.6 mmol/L (8-16); BILIRUBIN - TOTAL 0.92 mg/dL (0.2-1.3); CALCIUM 8.1 mg/dL (8.5-10.1); CARBON DIOXIDE 25.1 mmol/L (21.0-32.0); CREATININE - SERUM 4.9 mg/dL (0.6-1.3); POTASSIUM - SERUM 5.7 mmol/L (3.5-5.1); PROTEIN - SERUM 5.2 g/dL (6.4-8.2)
--- NOTE | 2019-12-14 05:04 | NUR ---
TEMP 99.6 AXILLARY
[2019-12-14 05:42] LABS: BASOPHILS 0.3 % (0-2); EOSINOPHILS 1.5 % (0-7); HEMATOCRIT 24.3 % (42.0-54.0); HEMOGLOBIN 7.7 g/dL (13.5-17.5); IMMATURE GRANULOCYTES 0.3 % (0-5); LYMPHOCYTES 8.1 % (15-50); MCH 29.6 pg (26.0-34.0); MCHC 31.7 g/dL (31.0-37.0); MCV 93.5 fL (80.0-100.0); MEAN PLATELET VOLUME 10.9 fL (7.4-10.4); NEUTROPHILS 74.8 % (40-80); PLATELET COUNT 88 10x3/uL (130-400); WBC 3.9 10x3/uL (4.8-10.8)
--- NOTE | 2019-12-14 11:12 | NUR ---
PT LYING IN BED, RESPONDS TO TOUCH. EDEMA NOTED TO RIGHT ARM THAT IS WEEPING. RESIDUAL FOR TUBE FEED AT 240 ML. REFED 100 ML AND WILL CHECK AGAIN PRIOR TO STARTING FEEDING BACK.
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
--- NOTE | 2019-12-14 14:29 | NUR ---
Nutrition Follow-up: Per ST, not safe for PO intake. Residual of 240 mL this AM and TF held per nursing. Noted family now agreeable to hospice. Diet: Pulmocare @ 40 Wt: 230# (12/13) Last BM: 12/11 per chart Labs noted: K+ 5.7, Ca 8.1, Alb 1.8 Meds noted: Kayexalate, Protonix, Humalog, Lantus -RD following.
--- NOTE | 2019-12-14 15:33 | NUR ---
OT NOTE: PT COMPLETED BUE PROM TOLERATED. PT REQUIRED TOTAL A WITH POSITIONING OF UES . [phone] THANK YOU,KAROL MORLEY
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
--- NOTE | 2019-12-14 19:54 | NUR ---
PT LYING IN BED. RESTING WITH EYES CLOSED. SLOWLY BLINK EYES WITH TOUCH. PT IS LATHARGIC. NG TUBE IN PLACE. CALL LIGHT WITH IN REACH. WILL CONTINUE TO MONITOR
--- NOTE | 2019-12-15 02:44 | NUR ---
TUBE FEEDING STOPPED. 200ML OF RESIDUAL. WILL CHECK AGAIN IN AM. NO SIGNS OF DISTRESS NOTED. REPOSITIONED PT FOR COMFORT. CALL LIGHT WITH IN REACH. WILL CONTINUE TO MONITOR
--- NOTE | 2019-12-15 04:36 | NUR ---
I have reviewed this patient and I concur with the Shift Assessment completed by the Licensed Practical Nurse today this shift.
[2019-12-15 07:10] VITALS: BP 121/66
[2019-12-15 08:07] VITALS: BP 118/47
[2019-12-15 08:34] LABS: HEMATOCRIT 23.8 % (42.0-54.0); MCH 29.2 pg (26.0-34.0); MCHC 31.1 g/dL (31.0-37.0); MCV 94.1 fL (80.0-100.0); PLATELET COUNT 89 10x3/uL (130-400); RBC 2.53 10x6/uL (4.20-6.10); RDW 17.5 % (11.5-14.5)
[2019-12-15 08:35] LABS: WBC 2.6 10x3/uL (4.8-10.8)
--- NOTE | 2019-12-15 08:37 | NUR ---
PT LAYING IN BED, NON-VERBAL. RESIDUAL CHECKS STILL HIGH, HOLDING FEEDING FOR NOW. LABS DRAWN AND SENT.
[2019-12-15 08:38] LABS: HEMOGLOBIN 7.4 g/dL (13.5-17.5)
[2019-12-15 08:53] LABS: ALBUMIN 1.5 g/dL (3.4-5.0); ANION GAP 18.7 mmol/L (8-16); BILIRUBIN - TOTAL 0.98 mg/dL (0.2-1.3); CALCIUM 8.1 mg/dL (8.5-10.1); CARBON DIOXIDE 23.3 mmol/L (21.0-32.0); CREATININE - SERUM 5.8 mg/dL (0.6-1.3); PROTEIN - SERUM 4.9 g/dL (6.4-8.2)
[2019-12-15 09:50] LABS: EOSINOPHILS 1 % (0-7); LYMPHOCYTES 16 % (15-50); NEUTROPHILS 82 % (40-80)
[2019-12-15 09:51] LABS: PLATELET ESTIMATE DECREASED
--- NOTE | 2019-12-15 11:01 | NUR ---
OT NOTE: PT COMPLETED BUE PROM TOLERATED. PT REQUIRED TOTAL A FOR UE POSITIONING. [phone] THANK YOU,KAROL MORLEY
--- NOTE | 2019-12-15 11:29 | NUR ---
OT NOTE: PERFORMED PROM AND POSITIONED TO B UES/LES WITH ASSIST OF ROBERSON; REPOSITIONED PT UP IN BED AND PROVIDED ORAL CARE. PT WAS ALERT, BUT REMAINS NOT VERBAL. UPON PERFORMING ORAL CARE, PT CONT TO MOVE HEAD IF TO AVOID CLEANING..( SIMILAR TO WHEN ST ATTEMPTED FEEDING). PT REMAINS VERY WEAK WITH NO ATTEMPTS AT ACTIVELY MOVING ANY EXTREMETIES. WILL DC OT SERVICES UNTIL INCREASED PARTICIPATION IS NOTED BY PT. CALVIN HOPE, OTR/L [phone]
[2019-12-15 11:32] VITALS: BP 103/43
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
--- NOTE | 2019-12-15 16:30 | NUR ---
PT'S DISCHARGE PAPERS LEFT IN ROOM FOR FAMILY. ADMISSIONS NOTIFIED OF PT CHANGE OF STATUS TO HOSPICE. ORDERS FAXED.
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
== END 2019-12-15 16:31 | disposition hospice, inpatient (51) | DRG 207 ==
LOC: D.ER 15:46 → D.M2 17:08 → OBSVTIME 11-20 12:45 → D.M2 11-20 12:46 → D.ICU 11-20 12:46 → D.SDCHOLD 11-21 14:23 → D.M2 11-21 14:24 → D.ICU 11-22 20:54 → D.M2 12-12 11:39
PROVIDERS: Family Medicine; Internal Medicine; Internal Medicine Hematology & Oncology; Internal Medicine Nephrology; Internal Medicine Pulmonary Disease; ADMIT Internal Medicine Nephrology; ATTEND Internal Medicine Nephrology
PROC: 5A1955Z Respiratory Ventilation, Greater than 96 Consecutive Hours (ICD-10-PCS; 2019-11-25)
PROC: 0BH17EZ Insertion of Endotracheal Airway into Trachea, Via Natural or Artificial Opening (ICD-10-PCS; 2019-11-25)
PROC: 0B9C8ZX Drainage of Right Upper Lung Lobe, Via Natural or Artificial Opening Endoscopic, Diagnostic (ICD-10-PCS; principal; 2019-11-27)
PROC: 05HM33Z Insertion of Infusion Device into Right Internal Jugular Vein, Percutaneous Approach (ICD-10-PCS; 2019-12-11)
DX: J44.1 Chronic obstructive pulmonary disease with (acute) exacerbation (principal); J96.21 Acute and chronic respiratory failure with hypoxia; I50.23 Acute on chronic systolic (congestive) heart failure; J18.9 Pneumonia, unspecified organism; A41.9 Sepsis, unspecified organism; I13.0 Hypertensive heart and chronic kidney disease with heart failure and stage 1 through stage 4 chronic kidney disease, or unspecified chronic kidney disease; N18.4 Chronic kidney disease, stage 4 (severe); N17.9 Acute kidney failure, unspecified; J98.11 Atelectasis; D62 Acute posthemorrhagic anemia; R04.89 Hemorrhage from other sites in respiratory passages; I42.9 Cardiomyopathy, unspecified; G72.81 Critical illness myopathy; E11.22 Type 2 diabetes mellitus with diabetic chronic kidney disease; Z66 Do not resuscitate; E11.65 Type 2 diabetes mellitus with hyperglycemia; D63.1 Anemia in chronic kidney disease; E87.6 Hypokalemia; E11.51 Type 2 diabetes mellitus with diabetic peripheral angiopathy without gangrene; G25.81 Restless legs syndrome; K59.00 Constipation, unspecified; K21.9 Gastro-esophageal reflux disease without esophagitis; G89.29 Other chronic pain; M54.9 Dorsalgia, unspecified; I48.91 Unspecified atrial fibrillation; I25.10 Atherosclerotic heart disease of native coronary artery without angina pectoris; E11.21 Type 2 diabetes mellitus with diabetic nephropathy; D75.82 Heparin induced thrombocytopenia (HIT); Z86.73 Personal history of transient ischemic attack (TIA), and cerebral infarction without residual deficits; Z87.891 Personal history of nicotine dependence

== ENCOUNTER 2019-12-15 17:41 | Inpatient (IN) | payer OTHER ==
[~2019-12-15] VITALS: Ht 182.9 cm; Wt 103.4 kg
[2019-12-15 18:24] VITALS: BP 103/43; BMI 31.0
--- NOTE | 2019-12-15 19:31 | NUR ---
RECEIVED UP IN BED WITH HOB AT 30 DEGREES. O2@ 3 LITERS PER N/C. TRIALYSIS TO RT EJ. ALSO, HAS IV TO RIGHT WRIST SL. UPPER EXTREMITIES 4+ EDEMA AND ALSO ARE WEEPING. YELLOW DRAINAGE FROM BOTH ARMS. PADS CHANGED UNDER ARMS. PILLOWS PLACED FOR COMFORT. REMAINS ON 1ST STEP OVER LAY MATTRESS. HEELS BRIDGED. REMAINS ANURIC. TELEMETRY IN PLACE. NO S/S OF DISTRESS OBSERVED.
[2019-12-15 21:10] VITALS: BP 74/46
--- NOTE | 2019-12-16 08:14 | NUR ---
PT RESTING PEACEFULLY. DID NOT RESPOND TO VERBAL OR LIGHT PHYSICAL STIMULI. BREATHS SHORT, EVEN AND REGULAR. WILL CONT. TO MONITOR. NO SIGNS OR SYMTPOMS OF ACTUE PAIN OR DISTRESS NOTED AT THIS TIME. CL IN REACH, SRX2.
--- NOTE | 2019-12-16 09:52 | NUR ---
NO CHANGES TO CONDITION. WILL CNT. TO MONITOR.
--- NOTE | 2019-12-16 14:30 | NUR ---
I HAVE REVIEWED THIS PATIENT AND I CONCUR WITH THE SHIFT ASSESSMENT COMPLETED BY THE CLAIM CLERK TODAY.
--- NOTE | 2019-12-16 17:10 | NUR ---
PT HAS EYES OPEN, GRUNTS WHEN I REPOSITIONED AND CAHNGED PADDING BUT OTHERWISE UNRESPONSIVE. PREOFMED ORAL CARE AND WIPED EYES WHICH WERE WATERY. CL IN REACH, SRX2.
--- NOTE | 2019-12-16 19:46 | NUR ---
NOE LOOKED IN ON PT AT START OF SHIFT DURING BEDSIDE REPORT AT THIS TIME PT IS RESTING WITH EYES CLOSED RESP 23 NONLABORED NGT IS CLAMPED O2 IN PLACE AT 3L PT IS TOTAL CARE AND OM OVERLAY MATRESS INFLATED PROPERLY WILL TURN PT AND SEE TO NEEDS
[2019-12-16 20:00] VITALS: BP 144/56
[2019-12-17] VITALS: BP 142/60
--- NOTE | 2019-12-17 01:38 | NUR ---
CONTINUEING TOTAL CARE PTR STILL NOT RESPONSIVE TO ANY STIMULI RESP EVEN AND NONE LABORED
[2019-12-17 04:00] VITALS: BP 140/55
--- NOTE | 2019-12-17 05:55 | NUR ---
I have reviewed this patient and I concur with the Shift Assessment completed by the Licensed Practical Nurse today this shift.
--- NOTE | 2019-12-17 07:32 | NUR ---
PT UNRESPONSIVE, BREATHS SHORT AND UNALBORED. WILL CNT. TO MONITOR. NO MOANING OR APPEARENCE OF PAIN. CL IN REACH, SRX2
--- NOTE | 2019-12-17 09:09 | NUR ---
PT RESPIRATIONS 37, ADMINSITERED DILAUDID TO ASSIST WITH DYPSNEA. PT CONDITION CONTINUING TO WORSEN. WILL CNT. TO MONITOR AND INFORM FAMILY OF CHANGES. CL INR EACH, SRX2.
[2019-12-17 10:14] VITALS: BP 127/47
--- NOTE | 2019-12-17 11:56 | NUR ---
PT STATUS UNCHANGED. WILL CNT. TO MONITOR.
[2019-12-17 13:20] VITALS: Ht 182.9 cm; Wt 103.4 kg
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
--- NOTE | 2019-12-17 18:14 | NUR ---
PT CONDITIONED UNCHANGED, CURRENTLY CLEAN AND DRY. WILL CONT. TO MONITOR. CL IN REACH, SRX2
--- NOTE | 2019-12-17 19:30 | NUR ---
PT IN BED, EYES CLOSED, UNRESPONSIVE, PT ON HOSPICE, RESP UNLABORED, CL IN REACH, SR UP X 2.
[2019-12-17 20:00] VITALS: BP 147/59
--- NOTE | 2019-12-18 04:00 | NUR ---
I have reviewed this patient and I concur with the Shift Assessment completed by the Licensed Practical Nurse today this shift.
--- NOTE | 2019-12-18 04:10 | NUR ---
HOSPICE NURSE PAGED AT THIS TIME, PT HAS , WAITING ON HOSPICE NURSE TO PRONOUNCE PT'S .
--- NOTE | 2019-12-18 04:24 | NUR ---
HOSPICE NURSE NOTIFED OF AND IS IN ROUTE TO HOSPITAL AT THIS TIME.
--- NOTE | 2019-12-18 05:45 | NUR ---
PT PRONOUNCED AT 0517 PER HOSPICE NURSE.
== END 2019-12-18 08:37 | DRG 951 ==
LOC: D.M2 17:41
PROVIDERS: ADMIT Legal Medicine; ATTEND Legal Medicine
DX: Z51.5 Encounter for palliative care (principal)